=== PATIENT | male | born 1960 | race African-American/Black ===

== ENCOUNTER → 2016-05-22 | Outpatient (CLI) | payer OTHER ==
--- NOTE | 2016-05-22 08:16 | EKG REPORT ---
SEVERITY:- NORMAL ECG - SINUS RHYTHM : Confirmed by: Tom Boyle 22-May-2016 08:15:47
[2016-05-22 08:18] LABS: ABSOLUTE EOSINOPHILS # (AUTO) 0.1 10^3/uL (0.0-0.6); ABSOLUTE LYMPHOCYTES (AUTO) 1.1 10^3/uL (0.5-4.7); ABSOLUTE MONOCYTES (AUTO) 0.5 10^3/uL (0.1-1.4); ABSOLUTE NEUT (AUTO) 1.9 10^3/uL (1.7-8.2); BASOPHILS % (AUTO) 0.7 % (0-2); EOSINOPHILS % (AUTO) 2.7 % (0-6); HEMATOCRIT 40.3 % (37.9-51.0); HEMOGLOBIN 13.8 g/dL (13.5-17.0); HGB HCT DIFFERENCE 1.1; LYMPHOCYTES % (AUTO) 31.4 % (13-45); MEAN CORPUSCULAR HEMOGLOBIN 29.7 pg (27.0-33.4); MEAN CORPUSCULAR HGB CONC 34.3 g/dL (32.0-36.0); MEAN CORPUSCULAR VOLUME 87 fl (80-97); MONOCYTES % (AUTO) 13.1 % (3-13); RED BLOOD COUNT 4.66 10^6/uL (4.35-5.55); RED CELL DISTRIBUTION WIDTH 13.7 % (11.5-14.0); SEGMENTED NEUTROPHILS % (AUTO) 52.1 % (42-78); WHITE BLOOD COUNT 3.6 10^3/uL (4.0-10.5)
[2016-05-22 08:37] LABS: ALANINE AMINOTRANSFERASE 32 U/L (21-72); ALBUMIN 4.1 g/dL (3.5-5.0); ALKALINE PHOSPHATASE 64 U/L (38-126); ANION GAP 15 (5-19); ASPARTATE AMINO TRANSFERASE 26 U/L (17-59); BILIRUBIN,DIRECT 0.2 mg/dL (0.0-0.4); BILIRUBIN,TOTAL 0.5 mg/dL (0.2-1.3); BLOOD UREA NITROGEN 14 mg/dL (7-20); CALCIUM 9.9 mg/dL (8.4-10.2); CARBON DIOXIDE 28 mmol/L (22-30); CHLORIDE 103 mmol/L (98-107); CREATININE RESULT 1.11 mg/dL (0.52-1.25); Direct HDL 41 mg/dL (>40); GLUCOSE 106 mg/dL (75-110); POTASSIUM 4.8 mmol/L (3.6-5.0); SODIUM 145.5 mmol/L (137-145); TOTAL PROTEIN 7.3 g/dL (6.3-8.2); TRIGLYCERIDES 167 mg/dL (<150)
[2016-05-22 09:13] LABS: DIRECT LDL 123 mg/dL (<100)
[2016-05-22 09:38] LABS: VLDL CHOLESTEROL 33.4 mg/dL (10-31)
== END ==
LOC: CCC 07:16
DX: I10 Essential (primary) hypertension (principal); E66.9 Obesity, unspecified; K21.9 Gastro-esophageal reflux disease without esophagitis; M25.512 Pain in left shoulder
CPT/HCPCS: 36415; 80053; 80061; 83036; 84153; 84443; 85025; 93005; 93010

== ENCOUNTER 2016-07-07 02:39 | Emergency (ER) | payer SELFPAY ==
[2016-07-07] MEDS ORDERED: IPRATROPIUM/ALBUTEROL 0.5-2.5 MG/3 ML AMPUL NEB ONE ×2 (03:24→04:53)
[2016-07-07] MEDS ORDERED: PREDNISONE 20 MG TABLET PO ONE (03:25)
--- NOTE | 2016-07-07 04:05 | ER Document Report ---
ED General - General Chief Complaint: Nonproductive Cough Stated Complaint: CHEST PAIN,WHEEZING Time Seen by Provider: 07/07/16 03:20 Notes: Patient is a 55-year-old male who presents with complaints of wheezing, cough, congestion for 3 days. He says he has pain in his chest every time he coughs. No fevers. No vomiting. No diarrhea. He is a smoker. No other complaints at this time. TRAVEL OUTSIDE OF THE [place] IN LAST 30 DAYS: No - Related Data Allergies/Adverse Reactions: chlorpheniramine [From Theraflu Cold & Sore Throat] Allergy (Unknown, Verified 07/07/16 04:04) pseudoephedrine HCl [From Theraflu Cold & Sore Throat] Allergy (Unknown, Verified 07/07/16 04:04) ketorolac tromethamine [From Toradol] Allergy (Verified 07/07/16 04:04) Hives Shellfish * [Shellfish] Allergy (Verified 07/07/16 04:04) swelling tramadol [Tramadol] Allergy (Verified 07/07/16 04:04) Hives tramadol HCl [From Ultram] Allergy (Verified 07/07/16 04:04) Hives Past Medical History - Social History Smoking Status: Current Every Day Smoker Chew tobacco use (# tins/day): No Frequency of alcohol use: None Drug Abuse: None Family History: CAD - Past Medical History Cardiac Medical History: Reports: Hx Hypercholesterolemia, Hx Hypertension Denies: Hx Heart Attack Pulmonary Medical History: Denies: Hx Asthma, Hx Bronchitis, Hx COPD, Hx Pneumonia, Hx Tuberculosis Neurological Medical History: Denies: Hx Cerebrovascular Accident, Hx Seizures Endocrine Medical History: Reports: Hx Diabetes Mellitus Type 2 - pre-diabetic Renal/ Medical History: Denies: Hx Peritoneal Dialysis GI Medical History: Reports: Hx Gastroesophageal Reflux Disease, Hx Hiatal Hernia, Hx Ulcer Musculoskeltal Medical History: Reports Hx Arthritis Psychiatric Medical History: Reports: Hx Bipolar Disorder, Hx Depression Past Surgical History: Reports: Hx Inguinal Hernia - [facility] REPAIR. Denies: Hx Pacemaker - Immunizations Immunizations up to date: Yes Hx Diphtheria, Pertussis, Tetanus Vaccination: Yes Hx Pneumococcal Vaccination: 02/24/00 Review of Systems - Review of Systems Notes: My Normal Review Basic REVIEW OF SYSTEMS: CONSTITUTIONAL : Denies fever, chills, or sweats. Denies recent illness. EENT: Denies eye, ear, throat, or mouth pain or symptoms. Denies nasal or sinus congestion. CARDIOVASCULAR: Chest pain with cough. RESPIRATORY: Diffuse wheezing GASTROINTESTINAL: Denies abdominal pain. Denies nausea, vomiting, or diarrhea. Denies constipation. Last BM: MUSCULOSKELETAL: Denies neck or back pain or joint pain or swelling. SKIN: Denies rash or skin lesions. NEUROLOGICAL: Denies altered mental status or loss of consciousness. ALL OTHER SYSTEMS REVIEWED AND NEGATIVE. Physical Exam - Vital signs Vitals: Temp Pulse BP Pulse Ox 98.4 F 95 128/91 H 96 07/07/16 02:43 07/07/16 02:43 07/07/16 02:43 07/07/16 02:43 - Notes Notes: General Appearance: Well nourished, alert, cooperative, no acute distress, mild obvious discomfort. Vitals: reviewed, See vital signs table. Head: no swelling or tenderness to the head Eyes: PERRL, EOMI, Conjuctiva clear Mouth: No decreasd moisture Lungs: scattered wheezing, No rales, No rhonci, No accessory muscle use, good air exchange bilaterally. Heart: Normal rate, Regular rythm, No murmur, no rub Abdomen: Normal BS, soft, No rigidity, No abdominal tenderness, No guarding, no rebound, no abdominal masses, no organomegaly Extremities: strength 5/5 in all extremities, good pulses in all extremities, no swelling or tenderness in the extremities, no edema. Skin: warm, dry, appropriate color, no rash Neuro: speech clear, oriented x 3, normal affect, responds appropriately to questions. Course - Re-evaluation Re-evalutation: 07/07/16 05:26 Patient is having some and improvement now after last breathing treatments. He has very slight wheezing left. Still some cough. I'll give him 1 dose magnesium. I suspect he'll be able to be discharged after that. - Vital Signs Vital signs: Temp Pulse Resp BP Pulse Ox 98.4 F 95 128/91 H 96 07/07/16 02:43 07/07/16 02:43 07/07/16 02:43 07/07/16 02:43 - EKG Interpretation by Me Additional EKG results interpreted by me: 07/07/16 04:04 EKG is reviewed and interpreted by me. EKG shows normal sinus rhythm with rate of [address] segment elevation or depression. No ischemic T wave inversions. KS interval, QRS duration, QTC also are within normal range. Old EKG for comparison is from 05/22/2016. - Transfer of Care Notes: 07/07/16 06:15 Patient's lung barton are much more clear. He looks well. Appears a has bronchitis. It's wheezing cough and congestion associated with smoking. I will place him on prednisone. I'll place him on an albuterol inhaler. We'll give him azithromycin. I encouraged him to return to ER if he has worsening difficulty breathing, fevers, or feels unwell. I think his chest pain is related to coughing. Pain occurs when he coughs. I do not think is cardiac in nature. His EKG is negative. Dictation of this chart was performed using voice recognition software; therefore, there may be some unintended grammatical errors. Discharge - Discharge Clinical Impression: Bronchitis Condition: Good Disposition: HOME, SELF-CARE Additional Instructions: BRONCHITIS WITH BRONCHOSPASM (WHEEZING): You have bronchitis with bronchospasm (wheezing). Sometimes people develop wheezing with a chest cold. This occurs either because of an underlying tendency toward asthma or because the virus itself irritates the bronchial tubes. This irritation causes cough, shortness of breath, and wheezing. Emergency treatment of bronchospasm may include adrenaline shots or bronchodilator aerosol. You may feel lightheaded and have a rapid pulse for an hour or two. Rest and get plenty of fluids. At home, we'll treat you with a bronchodilator inhaler. Corticosteroids may be required for some patients. Until you recover, avoid chemical fumes, dusts, pollens, and exercising in very cold or dry air. If you smoke, stop now! Most cases of bronchitis get better without antibiotics. We prescribe antibiotics when we believe bacteria are damaging your airways, or if there's high risk the bronchitis will worsen into pneumonia. Increase your fluid intake. A cool mist humidifier may make your lungs more comfortable. An expectorant (cough medicine that loosens phlegm) can help. Repeated episodes of bronchitis and bronchospasm may result in lung damage -- for example, chronic bronchitis, recurrent pneumonias, or emphysema. If you develop a fever, increased wheezing, chest pain, or severe shortness of breath, you should contact the doctor immediately. INHALED BRONCHODILATORS: You have received a treatment of and/or prescription for an inhaled bronchodilator -- a medication which stimulates the airways in the lung to dilate. This improves the flow of air in asthma, bronchitis, and emphysema. These medicines have some similarity to adrenaline, and can cause similar side effects: shakiness, racing heart, and a sense of nervousness. These side effects decrease with time. Contact your doctor if these side effects are severe. Do not over-use the medicine. Too-frequent use of the inhaler may make it ineffective. Call your doctor if the inhaler is not controlling your symptoms at the prescribed doses. STEROID MEDICATION: You have been given an injection of or oral medicine of the cortisone/ steroid class. This medication is used to control inflammation or allergy. Robin t is usually only given for a short period of time, until the acute process subsides. There are usually no side effects from short-term use of cortisone-like medications. Some persons feel an increased sense of well-being and are not sleepy at bedtime. Long-term use of cortisone medications is best avoided, unless required for a severe condition. If your condition does not remit, or relapses after the course of corticosteroid medication, you should consult your physician. ANTIBIOTIC THERAPY: You have been given an antibiotic prescription. It's important that you take all the medication, unless instructed otherwise by your physician. Failure to complete the entire course can result in relapse of your condition. Common side effects of antibiotics include nausea, intestinal cramping, or diarrhea. Women may develop vaginal yeast infections, and babies can get yeast (thrush) in the mouth following the use of antibiotics. Contact your physician if you develop significant side effects from this medication. Allergy to this antibiotic can result in hives, wheezing, faintness, or itching. If symptoms of allergy occur, stop the medication and call your doctor. AZITHROMYCIN: Azithromycin (Zithromax) is a broad spectrum antibiotic in the same class as erythromycin. It can treat a variety of bacterial infections, but is most frequently used for respiratory infections. Azithromycin is extremely long-lasting. It accumulates in body tissues and continues to kill bacteria for many days. In order to improve absorption, Azithromycin should be taken at least one hour before or two hours after a meal. It does not have the same strong tendency to upset the stomach as erythromycin and is usually very well tolerated. Patients who have had a rash or other true allergic reactions to erythromycin should not take this medication. Call if you develop gastrointestinal distress, severe diarrhea, rash, hives, itching, or shortness of breath. SMOKING: If you smoke, you should stop smoking. The tar and chemicals in cigarette smoke are harmful. Smoking has been shown to cause: emphysema chronic bronchitis lung cancer mouth and throat cancer stomach and pancreas cancer premature aging defects In addition, smoking increases ear and lung infections in children of smokers. FOLLOW-UP CARE: If you have been referred to a physician for follow-up care, call the physician s office for an appointment as you were instructed or within the next two days. If you experience worsening or a significant change in your symptoms, notify the physician immediately or return to the Emergency Department at any time for re-evaluation. Use the inhaler 2 puffs every 2 hours as needed for wheezing or coughing. Please return to the ER immediately if you develop worsening difficulty breathing, fevers, or feel unwell. Prescriptions: Azithromycin 250 mg PO DAILY #4 tablet Prednisone [Deltasone 20 mg Tablet] 3 tab PO DAILY 4 Days Forms: Return to School
[2016-07-07] MEDS ORDERED: MAGNESIUM SULFATE/D5W 100 ML IV ONE (05:24)
[2016-07-07] MEDS ORDERED: AZITHROMYCIN 250 MG TABLET PO ONE (05:26)
[2016-07-07] MEDS ORDERED: ALBUTEROL SULFATE HFA (90 MCG/PUFF) 8 GM MDI (1 MDI/ER DISP) IH PRN (06:10)
[2016-07-07 06:28] VITALS: BP 129/83
--- NOTE | 2016-07-07 08:37 | EKG REPORT ---
SEVERITY:- NORMAL ECG - SINUS RHYTHM : Confirmed by: Tom Boyle 07-Jul-2016 08:36:08
== END 2016-07-07 06:29 | disposition home or self-care (01) ==
LOC: ER 02:39
DX: J40 Bronchitis, not specified as acute or chronic (principal); F17.200 Nicotine dependence, unspecified, uncomplicated; E78.00 Pure hypercholesterolemia, unspecified; R73.03 Prediabetes; I10 Essential (primary) hypertension; Z88.6 Allergy status to analgesic agent
CPT/HCPCS: 93005; 94640 ×2; 99284; 96365; 71010; 93010; J3475; J7512; J3490; J7620

== ENCOUNTER 2016-08-21 10:16 | Emergency (ER) | payer SELFPAY ==
[2016-08-21] MEDS ORDERED: LIDOCAINE 5% (700 MG) TRANSDERMAL ADH..PATCH TP ONE (10:30)
--- NOTE | 2016-08-21 10:48 | ER Document Report ---
ED General - General Chief Complaint: Abdominal Pain Stated Complaint: URINARY PROBLEM Time Seen by Provider: 08/21/16 10:26 TRAVEL OUTSIDE OF THE [place] IN LAST 30 DAYS: No - HPI Patient complains to provider of: Flank pain Notes: Patient coming in for evaluation of flank pain and foul-smelling urine ongoing intermittently for the last 2 months. Patient states she does drink water 5 more or less does not drink enough water for his conditions. Denies any past medical history denies any surgical history. Denies any history of trauma denies any difficulty in urinating - Related Data Allergies/Adverse Reactions: chlorpheniramine [From Theraflu Cold & Sore Throat] Allergy (Unknown, Verified 08/21/16 10:21) pseudoephedrine HCl [From Theraflu Cold & Sore Throat] Allergy (Unknown, Verified 08/21/16 10:21) ketorolac tromethamine [From Toradol] Allergy (Verified 08/21/16 10:21) Hives Shellfish * [Shellfish] Allergy (Verified 08/21/16 10:21) swelling tramadol [Tramadol] Allergy (Verified 08/21/16 10:21) Hives tramadol HCl [From Ultram] Allergy (Verified 08/21/16 10:21) Hives Past Medical History - Social History Smoking Status: Unknown if Ever Smoked Family History: CAD Patient has suicidal ideation: No Patient has homicidal ideation: No - Past Medical History Cardiac Medical History: Reports: Hx Hypercholesterolemia, Hx Hypertension Denies: Hx Heart Attack Pulmonary Medical History: Denies: Hx Asthma, Hx Bronchitis, Hx COPD, Hx Pneumonia, Hx Tuberculosis Neurological Medical History: Denies: Hx Cerebrovascular Accident, Hx Seizures Endocrine Medical History: Reports: Hx Diabetes Mellitus Type 2 - pre-diabetic Renal/ Medical History: Denies: Hx Peritoneal Dialysis GI Medical History: Reports: Hx Gastroesophageal Reflux Disease, Hx Hiatal Hernia, Hx Ulcer Musculoskeltal Medical History: Reports Hx Arthritis Psychiatric Medical History: Reports: Hx Bipolar Disorder, Hx Depression Past Surgical History: Reports: Hx Inguinal Hernia - [facility] REPAIR. Denies: Hx Pacemaker - Immunizations Immunizations up to date: Yes Hx Diphtheria, Pertussis, Tetanus Vaccination: Yes Hx Pneumococcal Vaccination: 02/24/00 Review of Systems - Review of Systems Constitutional: No symptoms reported EENT: No symptoms reported Cardiovascular: No symptoms reported Respiratory: No symptoms reported Gastrointestinal: No symptoms reported Genitourinary: Flank pain Male Genitourinary: No symptoms reported Musculoskeletal: No symptoms reported Skin: No symptoms reported Hematologic/Lymphatic: No symptoms reported Neurological/Psychological: No symptoms reported -: Yes All other systems reviewed and negative Physical Exam - Vital signs Vitals: Temp Pulse Resp BP Pulse Ox 98.0 F 103 H 16 115/76 96 08/21/16 10:21 08/21/16 10:21 08/21/16 10:21 08/21/16 10:21 08/21/16 10:21 Interpretation: Normal - General General appearance: Appears well, Alert - HEENT Head: Normocephalic, Atraumatic Eyes: Normal Pupils: PERRL - Respiratory Respiratory status: No respiratory distress Chest status: Nontender Breath sounds: Normal Chest palpation: Normal - Cardiovascular Rhythm: Regular Heart sounds: Normal auscultation Murmur: No - Abdominal Inspection: Normal Distension: No distension Bowel sounds: Normal Tenderness: Nontender Organomegaly: No organomegaly - Back Back: Normal, Tender - Palpation of the paraspinal muscles that L1-L2-L3 on the right side reproduces patient's tenderness - Extremities General upper extremity: Normal inspection, Nontender, Normal color, Normal ROM , Normal temperature General lower extremity: Normal inspection, Nontender, Normal color, Normal ROM , Normal temperature, Normal weight bearing. No: Vinod's sign - Neurological Neuro grossly intact: Yes Cognition: Normal Orientation: AAOx4 [place] Coma Scale Eye Opening: Spontaneous [place] Coma Scale Verbal: Oriented Tod Coma Scale Motor: Obeys Commands Tod Coma Scale Total: 15 Speech: Normal Motor strength normal: LUE, RUE, LLE, RLE Sensory: Normal - Psychological Associated symptoms: Normal affect, Normal mood - Skin Skin Temperature: Warm Skin Moisture: Dry Skin Color: Normal Course - Re-evaluation Re-evalutation: 08/21/16 18:40 Urinalysis shows signs of possible infection. Patient will be started on doxycycline. Patient lab work was reviewed with the patient encouraged patient follow-up primary care physician on [facility]. Patient will be discharged home. - Vital Signs Vital signs: Temp Pulse Resp BP Pulse Ox 98.2 F 92 18 121/79 95 08/21/16 12:08 08/21/16 12:08 08/21/16 12:08 08/21/16 12:08 08/21/16 12:08 - Laboratory Result Diagrams: 08/21/16 10:57 08/21/16 10:57 Laboratory results interpreted by me: 08/21/16 08/21/16 08/21/16 10:49 10:57 10:57 WBC 3.7 L Glucose 112 H Ur Leukocyte Esterase SMALL H Discharge - Discharge Clinical Impression: Flank pain UTI (urinary tract infection) Qualifiers: Urinary tract infection type: site unspecified Hematuria presence: without hematuria Qualified Code(s): N39.0 - Urinary tract infection, site not specified Condition: Good Disposition: HOME, SELF-CARE Instructions: Urinary Tract Infection ([facility]), Flank Pain ([facility]), Oral Narcotic Medication ([facility]), Family Physicians / Practices Additional Instructions: Your laboratory studies today do not show any signs of significant infection however her urine does point toward signs of a possible urinary tract infection. Your pain may be due to urinary tract infection or inflammation of your prostate. Your CAT scan does not reveal any critical pathology but does show a right inguinal hernia. At this time we will see that we treat you with an antibiotic for possible urinary tract infection for the next 10 days. He will be placed on antibiotic of doxycycline. If you cannot afford this antibiotic please have the pharmacy call us to change the name of this antibiotic. May also take pain medication provided. I will highly recommend taking Tylenol Motrin for regular pain. If this does not resolve your pain highly recommend following up with her family physician or the [facility] which information was given below for follow-up evaluation Prescriptions: Doxycycline Hyclate 100 mg PO BID #20 capsule Hydrocodone Bit/Acetaminophen [Hydrocodon-Acetaminophen 5-325] 1 each PO Q6 #20 tablet Forms: Return to Work
[2016-08-21 11:24] LABS: APPEARANCE,URINE CLEAR; BILIRUBIN,URINE NEGATIVE (NEGATIVE); GLUCOSE, URINE NEGATIVE (NEGATIVE); KETONES,URINE NEGATIVE (NEGATIVE); LEUKOCYTE ESTERASE,URINE SMALL (NEGATIVE); NITRITE,URINE NEGATIVE (NEGATIVE); PROTEIN,URINE NEGATIVE (NEGATIVE); URINE SPECIFIC GRAVITY 1.014; UROBILINOGEN,URINE NEGATIVE mg/dL (<2.0)
[2016-08-21 11:27] LABS: ABSOLUTE EOSINOPHILS # (AUTO) 0.1 10^3/uL (0.0-0.6); ABSOLUTE LYMPHOCYTES (AUTO) 1.2 10^3/uL (0.5-4.7); ABSOLUTE MONOCYTES (AUTO) 0.4 10^3/uL (0.1-1.4); BASOPHILS % (AUTO) 0.8 % (0-2); EOSINOPHILS % (AUTO) 1.6 % (0-6); HEMATOCRIT 41.7 % (37.9-51.0); HEMOGLOBIN 13.9 g/dL (13.5-17.0); LYMPHOCYTES % (AUTO) 32.2 % (13-45); MEAN CORPUSCULAR HEMOGLOBIN 29.9 pg (27.0-33.4); MEAN CORPUSCULAR HGB CONC 33.4 g/dL (32.0-36.0); MEAN CORPUSCULAR VOLUME 90 fl (80-97); MONOCYTES % (AUTO) 10.8 % (3-13); RED BLOOD COUNT 4.65 10^6/uL (4.35-5.55); RED CELL DISTRIBUTION WIDTH 13.1 % (11.5-14.0); SEGMENTED NEUTROPHILS % (AUTO) 54.6 % (42-78); WHITE BLOOD COUNT 3.7 10^3/uL (4.0-10.5)
[2016-08-21 11:41] LABS: ANION GAP 13 (5-19); BLOOD UREA NITROGEN 18 mg/dL (7-20); CALCIUM 9.5 mg/dL (8.4-10.2); CARBON DIOXIDE 24 mmol/L (22-30); CHLORIDE 103 mmol/L (98-107); CREATININE RESULT 1.16 mg/dL (0.52-1.25); GLUCOSE 112 mg/dL (75-110); POTASSIUM 4.5 mmol/L (3.6-5.0)
--- NOTE | 2016-08-21 11:48 | RADIOLOGY REPORT (SQ) ---
EXAM DESCRIPTION: CT LTD RENAL STONE PROTOCOL ON COMPLETED DATE/TIME: 08/21/2016 11:32 am REASON FOR STUDY: right flank pain COMPARISON: [address] abdomen pelvis exams since 06/24/2008, most recently 05/31/2015 TECHNIQUE: CT scan of the abdomen and pelvis performed without intravenous or oral contrast. Images reviewed with lung, soft tissue, and bone windows. Reconstructed coronal and sagittal MPR images revi ewed. All images stored on PACS. All CT scanners at this facility use dose modulation, iterative reconstruction, and/or weight based d osing when appropriate to reduce radiation dose to as low as reasonably achievable (ALARA). [facility]: Dose Right [facility]: CareDose [facility]: Dose Right [facility]: Teradose 4D [facility]: Prospectvision RADIATION DOSE: 18.51mGy. LIMITATIONS: None. FINDINGS: LOWER CHEST: No significant findings. No nodules or infiltrates. Small hiatal hernia. Mi nimal bandlike scarring or atelectasis, right lung base. NON-CONTRASTED LIVER, SPLEEN, ADRENALS: Evaluation limited by lack of IV contrast. No identified sign ificant masses. Benign hemangioma along the middle hepatic vein seen on prior CT exams of contrast i s not well visualized today. PANCREAS: No masses. No peripancreatic inflammatory changes. GALLBLADDER: No identified stones by CT criteria. No inflammatory changes to suggest cholecystitis. RIGHT KIDNEY AND URETER: No suspicious masses. Assessment limited by lack of IV contrast. No signif icant calcifications. No hydronephrosis or hydroureter. LEFT KIDNEY AND URETER: No suspicious masses. Assessment limited by lack of IV contrast. No signifi cant calcifications. No hydronephrosis or hydroureter. AORTA AND RETROPERITONEUM: No aneurysm. No retroperitoneal masses or adenopathy. BOWEL AND PERITONEAL CAVITY: No obvious masses or inflammatory changes. No free fluid. APPENDIX: Normal. PELVIS, BLADDER, AND ABDOMINAL WALL:No abnormal masses. No free fluid. Bladder normal. There is a sm all fat containing right inguinal hernia on axial images 78-97, and coronal images 40-46. BONES: No significant findings. OTHER: No other significant finding. IMPRESSION: No CT findings to explain history of right flank pain. There is a small fat containing right inguinal hernia TECHNICAL DOCUMENTATION: JOB ID: [id number] Quality ID # [id number]: Final reports with documentation of one or more dose reduction techniques (e.g., Au tomated exposure control, adjustment of the mA and/or kV according to patient size, use of iterative reconstruction technique) 2010 [email or web address]- All Rights Reserved
[2016-08-21 12:09] VITALS: BP 121/79
== END 2016-08-21 12:22 | disposition home or self-care (01) ==
LOC: ER 10:16
DX: N39.0 Urinary tract infection, site not specified (principal); R10.9 Unspecified abdominal pain; I10 Essential (primary) hypertension; Z88.8 Allergy status to other drugs, medicaments and biological substances; Z91.013 Allergy to seafood; Z88.5 Allergy status to narcotic agent
CPT/HCPCS: 36415; 76380; 80048; 81001; 85025; 99284

== ENCOUNTER → 2016-10-10 | Outpatient (CLI) | payer OTHER ==
--- NOTE | 2016-10-10 09:37 | RADIOLOGY REPORT (SQ) ---
EXAM DESCRIPTION: MRI LT UPPER JOINT WITHOUT COMPLETED DATE/TIME: 10/10/2016 8:28 am REASON FOR STUDY: PAIN IN UNSPECIFIED SHOULDER (M25.519) M25.519 PAIN IN UNSPECIFIED SHOULDER COMPARISON: None. TECHNIQUE: Left shoulder images acquired and stored on PACS. Multiplanar imaging to include fat sens itive sequences such as T1, water sensitive sequences such as FST2/STIR, cartilage sensitive sequence s such as FSPD/gradient-echo sequences. LIMITATIONS: None. FINDINGS: BONE MARROW AND CORTEX: No worrisome bone lesions or marrow replacement. No occult fractur es. JOINT OR BURSAL EFFUSION: No glenohumeral joint fluid. There is a small amount of fluid in the subac romial/subdeltoid bursa best shown on sagittal images 10-13. GLENO-HUMERAL ARTICULATION: Normal articulation. No subluxation. No cystic change. No osteophytes or cartilage loss. ACROMION AND AC JOINT: Type 2 with moderate bulky bony spurring, and mild narrowing of the subacromi al space on sagittal image 14 and coronal image 10. ROTATOR CUFF AND INTERVAL: A small full-thickness tear is present in the anterior aspect of the dista l supraspinatus tendon, best shown on coronal image 8 and sagittal image 5. There is diffuse tendino pascual throughout the infraspinatus tendon, with a small posterior infraspinatus tendon full-thickness tear on sagittal images 3-6. Subscapularis intact. No rotator interval tear. No rotator interval thickening to suggest adhesive capsulitis. LABRUM AND BICEPS LABRAL COMPLEX: Intra and extra-articular long head biceps tendon intact. Howeve r, there is diffuse degeneration throughout the anterior and superior labrum without paralabral cyst. These changes are best shown on axial images 8-13. Posterior labrum, inferior labrum intact. Smal l axillary recess, with thickening of the inferior glenohumeral ligament raises a question of adhesiv e capsulitis PERIARTICULAR AND ADJACENT SOFT TISSUES: No masses or abnormal nodes. OTHER: No other significant finding. IMPRESSION: Acromioclavicular joint bony spurring. Diffuse degeneration throughout the anterior half of the labrum Small supra and infraspinatus tendon tears TECHNICAL DOCUMENTATION: JOB ID: [id number] [employer]- All Rights Reserved
== END ==
LOC: RAD 07:23
DX: M25.512 Pain in left shoulder (principal)

== ENCOUNTER 2016-11-06 15:26 | Emergency (ER) | payer OTHER ==
[2016-11-06 15:33] VITALS: BP 132/85
[2016-11-06] MEDS ORDERED: HYDROCODONE/ACETAMINOPHEN 5-325 MG 6 TAB/DSPK PO PRN (16:05)
--- NOTE | 2016-11-06 16:12 | ER Document Report ---
ED Extremity Problem, Upper - General Chief Complaint: Shoulder Pain Stated Complaint: ARM PAIN Time Seen by Provider: 11/06/16 15:51 Mode of Arrival: Ambulatory Information source: Patient Notes: 55-year-old male presents to ED complaining of left shoulder and arm pain. This is a chronic pain problem. He states he has been having shoulder and arm pain for at least a year. He was seen at recently and had a MRI done which showed that he had a torn rotator cuff, bone spurring and arthritis in the shoulder. Patient states he has a follow-up appointment with Dr. Aguiar in [place] but he is hurting now. He states he was not started on any physical therapy or provided with a sling. TRAVEL OUTSIDE OF THE [place] IN LAST 30 DAYS: No - HPI Patient complains to provider of: Left, Shoulder Onset: Other - over a year Recent injury: No Quality of pain: Achy, Sharp, Throbbing Severity of pain: Severe Pain Level: 5 Exacerbated by: Movement, Exertion Relieved by: Rest, Positioning Similar symptoms previously: Yes Recently seen / treated by doctor: Yes - Related Data Allergies/Adverse Reactions: chlorpheniramine [From Theraflu Cold & Sore Throat] Allergy (Unknown, Verified 11/06/16 15:32) pseudoephedrine HCl [From Theraflu Cold & Sore Throat] Allergy (Unknown, Verified 11/06/16 15:32) ketorolac tromethamine [From Toradol] Allergy (Verified 11/06/16 15:32) Hives Shellfish * [Shellfish] Allergy (Verified 11/06/16 15:32) swelling tramadol [Tramadol] Allergy (Verified 11/06/16 15:32) Hives tramadol HCl [From Ultram] Allergy (Verified 11/06/16 15:32) Hives Past Medical History - General Information source: Patient - Social History Smoking Status: Current Every Day Smoker Cigarette use (# per day): Yes - One half pack per day Chew tobacco use (# tins/day): No Smoking Education Provided: Yes - Less than 2 minutes Frequency of alcohol use: None Drug Abuse: None Lives with: Family Family History: Arthritis, CAD, CVA, Hyperlipidemia, Hypertension Patient has suicidal ideation: No Patient has homicidal ideation: No - Past Medical History Cardiac Medical History: Reports: Hx Hypercholesterolemia, Hx Hypertension Pulmonary Medical History: Reports: Hx Bronchitis EENT Medical History: Reports: None Neurological Medical History: Reports: None Endocrine Medical History: Reports: Other - A diabetic Renal/ Medical History: Reports: None Malignancy Medical History: Reports None GI Medical History: Reports: Hx Gastroesophageal Reflux Disease, Hx Hiatal Hernia, Hx Ulcer, Hx Colonoscopy, Hx Endoscopy Musculoskeltal Medical History: Reports Hx Arthritis, Reports Hx Musculoskeletal Trauma - ACL tear Skin Medical History: Reports None Psychiatric Medical History: Reports: Hx Bipolar Disorder, Hx Depression Traumatic Medical History: Reports: None Infectious Medical History: Reports: None Past Surgical History: Reports: Hx Inguinal Hernia - [facility] REPAIR - Immunizations Immunizations up to date: Yes Hx Diphtheria, Pertussis, Tetanus Vaccination: Yes Hx Pneumococcal Vaccination: 02/24/00 Review of Systems - Review of Systems Constitutional: No symptoms reported EENT: No symptoms reported Cardiovascular: No symptoms reported Respiratory: No symptoms reported Gastrointestinal: No symptoms reported Genitourinary: No symptoms reported Male Genitourinary: No symptoms reported Musculoskeletal: Joint pain, Muscle pain, Muscle stiffness Skin: No symptoms reported Hematologic/Lymphatic: No symptoms reported Neurological/Psychological: No symptoms reported -: Yes All other systems reviewed and negative Physical Exam - Vital signs Vitals: Temp Pulse Resp BP Pulse Ox 98.3 F 106 H 14 132/85 H 97 11/06/16 15:30 11/06/16 15:30 11/06/16 15:30 11/06/16 15:30 11/06/16 15:30 Interpretation: Normal - General General appearance: Appears well, Alert - HEENT Head: Normocephalic, Atraumatic Eyes: Normal Pupils: PERRL - Respiratory Respiratory status: No respiratory distress Chest status: Nontender Breath sounds: Normal Chest palpation: Normal - Cardiovascular Rhythm: Regular Heart sounds: Normal auscultation Murmur: No - Abdominal Inspection: Normal Distension: No distension Bowel sounds: Normal Tenderness: Nontender Organomegaly: No organomegaly - Back Back: Normal, Nontender - Extremities General upper extremity: Normal color, Normal temperature General lower extremity: Normal inspection, Nontender, Normal color, Normal ROM , Normal temperature, Normal weight bearing. No: Vinod's sign Shoulder: Tender, Limited ROM. No: Abrasion, Deformity, Dislocation, Ecchymosis , Instability, Laceration Arm: Tender. No: Abrasion, Deformity, Ecchymosis, Instability, Laceration - Neurological Neuro grossly intact: Yes Cognition: Normal Orientation: AAOx4 [place] Coma Scale Eye Opening: Spontaneous Tod Coma Scale Verbal: Oriented Tod Coma Scale Motor: Obeys Commands Tod Coma Scale Total: 15 Speech: Normal Motor strength normal: LUE, RUE, LLE, RLE Sensory: Normal - Psychological Associated symptoms: Normal affect, Normal mood - Skin Skin Temperature: Warm Skin Moisture: Dry Skin Color: Normal Course - Re-evaluation Re-evalutation: 11/06/16 16:21 Patient was treated with a sling and Wayland dispense back for his chronic left shoulder pain. He was instructed that we do not provide narcotics for chronic pain and that he will not be getting more narcotics for his chronic pain he needs to follow-up with his orthopedics. He was also given instructions for shoulder exercises ice and warm packs. - Vital Signs Vital signs: Temp Pulse Resp BP Pulse Ox 98.3 F 106 H 14 132/85 H 97 11/06/16 15:30 11/06/16 15:30 11/06/16 15:30 11/06/16 15:30 11/06/16 15:30 Discharge - Discharge Clinical Impression: Chronic left shoulder pain Condition: Stable Disposition: HOME, SELF-CARE Instructions: Family Physicians / Practices, Exercise Program for the Shoulder ([facility]) Additional Instructions: You were seen today for chronic shoulder pain. You have been to the care in community clinic who did an MRI and showed you that you have a rotator cuff tear with arthritis and bone spurring and near shoulder. He stated you have a follow-up appointment with orthopedics for later this month. I will give you a sling to wear when you are walking. You are not to wear the sling at all times and you are not to wear the sling to bed. You need to be sure to keep moving her shoulder so that you do not get a frozen shoulder. I am going to give you a dispense pack of hydrocodone for your pain. This is a one-time of receiving this medication as we do not treat chronic pain with narcotics. USE OF TYLENOL (ACETAMINOPHEN): Acetaminophen may be taken for pain relief or fever control. It's much safer than aspirin, offering a wider range of "safe" dosages. It is safe during . Some brand names are Tylenol, Panadol, Datril, Anacin 3, Tempra, and Liquiprin. Acetaminophen can be repeated every four hours. The following are maximum recommended dosages: WEIGHT Dose Drops Elixir Chewable( 80mg) (LBS.) drprs=droppers tsp=teaspoon 6 40 mg 0.4 ml (1/2) 6-11 80 mg 0.8 ml (full) tsp 1 tab 12-16 120 mg 1 1/2 drprs 3/4 tsp 1 1/2 tabs 17-23 160 mg 2 drprs 1 tsp 2 tabs 24-30 240 mg 3 drprs 1 1/2 tsp 3 tabs 30-35 320 mg 2 tsp 4 tabs 36-41 360 mg 2 1/4 tsp 4 1/2 tabs 42-47 400 mg 2 1/2 tsp 5 tabs 48-53 480 mg 3 tsp 6 tabs 54-59 520 mg 3 1/4 tsp 6 1/2 tabs 60-64 560 mg 3 1/2 tsp 7 tabs 65-70 600 mg 3 3/4 tsp 7 1/2 tabs 71-76 640 mg 4 tsp 8 tabs 77-82 720 mg 4 1/2 tsp 9 tabs 83-88 800 mg 5 tsp 10 tabs >89 pounds or adults 650 mg to 900 mg Acetaminophen can be repeated every four hours. Maximum dose not to exceed 4000 mg a day. These maximum recommended dosages are slightly higher than the dosages written on the product container, but these dosages are very safe and below the toxic dosage for acetaminophen. ICE PACKS: Apply ice packs frequently against the painful area. Many different schedules are recommended, such as "20 minutes on, 20 minutes off" or "one hour ice, two hours rest." If you need to work, you may need to go longer between ice treatments. You should plan to have the area ice packed AT LEAST one fourth of the time. The ice should be applied over the wrap, tape, or splint, or over a layer of cloth -- not directly against the skin. Some ice bags have a built-in cloth and can be put directly on the skin. WARM PACKS: After approximately two days, apply gentle heat (such as a heating pad or hot water bottle) for about 20 to 30 minutes about every two hours -- at least four times daily. Warmth and elevation will help you make a more rapid recovery , and will ease the pain considerably. Do not use HOT heat, and never apply heat for longer than 30 minutes. The continuous heat can invisibly damage skin and muscles -- even when no burn is seen on the surface. Damaged muscles can make you MORE sore. ORAL NARCOTIC MEDICATION: You have been given a Wayland dispense back for pain control. This medication is a narcotic. It's best taken with food, as nausea can result if taken on an empty stomach. Don't operate machinery or drive within six hours of taking this medication. Do not combine this medicine with alcohol, or with any medication which can cause sedation (such as cold tablets or sleeping pills) unless you get permission from the physician. Narcotics tend to cause constipation. If possible, drink plenty of fluids and eat a diet high in fiber and fruits. USE OF TCAN-VWT-EUVRLFW IBUPROFEN: Ibuprofen (Advil, Nuprin, Medipren, Motrin IB) is a medication for fever and pain control. In addition, it has anti- inflammatory effects which may be beneficial, especially in the treatment of injuries. It's best to take ibuprofen with food. Persons with ulcer disease or allergy to aspirin should notify their physician of this before taking ibuprofen. Ibuprofen can be given every four to six hours, for a total of four doses daily. Age Pain or fever dose Antiinflammatory dose 6-8 yr 200 mg (1 tab) 200 mg (1 tab) 9-11 yr 200 mg (1 tab) 200-400 mg (1-2 tab) 11-14 yr 200-400 mg (1-2 tab) 400 mg (2 tab) 15-adult 400 mg (2 tab) 600 mg (3 tab) FOLLOW-UP CARE: If you have been referred to a physician for follow-up care, call the physician s office for an appointment as you were instructed or within the next two days. If you experience worsening or a significant change in your symptoms, notify the physician immediately or return to the Emergency Department at any time for re-evaluation. Forms: Elevated Blood Pressure, Smoking Cessation Education
== END 2016-11-06 16:28 | disposition home or self-care (01) ==
LOC: ER 15:26
DX: G89.29 Other chronic pain (principal); M25.512 Pain in left shoulder; F17.210 Nicotine dependence, cigarettes, uncomplicated; E78.00 Pure hypercholesterolemia, unspecified; I10 Essential (primary) hypertension; K21.9 Gastro-esophageal reflux disease without esophagitis; Z88.6 Allergy status to analgesic agent; Z91.013 Allergy to seafood
CPT/HCPCS: 99283

== ENCOUNTER → 2017-04-16 | Outpatient (CLI) | payer OTHER ==
[2017-04-16 12:32] LABS: CHOLESTEROL 143.66 mg/dL (0-200); TRIGLYCERIDES 111 mg/dL (<150)
[2017-04-16 12:42] LABS: DIRECT LDL 75 mg/dL (<100)
== END ==
LOC: CCC 11:33
DX: E78.5 Hyperlipidemia, unspecified (principal)
CPT/HCPCS: 36415; 80061

== ENCOUNTER 2017-06-07 18:08 | Emergency (ER) | payer OTHER ==
--- NOTE | 2017-06-07 19:43 | RADIOLOGY REPORT (SQ) ---
EXAM DESCRIPTION: CHEST 2 VIEWS COMPLETED DATE/TIME: 06/07/2017 7:36 pm REASON FOR STUDY: cough, chest pain COMPARISON: 06/25/2012 EXAM PARAMETERS: NUMBER OF VIEWS: two views TECHNIQUE: Digital Frontal and Lateral radiographic views of the chest acquired. RADIATION DOSE: NA LIMITATIONS: none FINDINGS: LUNGS AND PLEURA: No opacities, masses or pneumothorax. No pleural effusion. MEDIASTINUM AND HILAR STRUCTURES: No masses or contour abnormalities. HEART AND VASCULAR STRUCTURES: Heart normal size. No evidence for failure. BONES: No acute findings. HARDWARE: None in the chest. OTHER: No other significant finding. IMPRESSION: NO ACUTE RADIOGRAPHIC FINDING IN THE CHEST. TECHNICAL DOCUMENTATION: JOB ID: [id number] [employer]- All Rights Reserved Reading location - IP/workstation name: [email or web address]
--- NOTE | 2017-06-07 19:54 | ER Document Report ---
ED General - General Chief Complaint: Cough Stated Complaint: COUGH Time Seen by Provider: 06/07/17 19:25 TRAVEL OUTSIDE OF THE [place] IN LAST 30 DAYS: No - HPI Notes: 56-year-old smoker presents with cough. Patient initially had runny nose and congestion and has had more persistent cough over the last week and 1/2-2 weeks. He complains that he is wheezing but denies any history of asthma, previous wheezing or COPD. He is a smoker unquantified amount. Mild chest soreness with cough, nonradiating. Gradual in onset. No other modifying factors, no other associated symptoms, no other provocative or palliative factors. - Related Data Allergies/Adverse Reactions: chlorpheniramine [From Theraflu Cold & Sore Throat] Allergy (Unknown, Verified 12/29/16 18:29) pseudoephedrine HCl [From Theraflu Cold & Sore Throat] Allergy (Unknown, Verified 12/29/16 18:29) ketorolac tromethamine [From Toradol] Allergy (Verified 12/29/16 18:29) Hives Shellfish * [Shellfish] Allergy (Verified 12/29/16 18:29) swelling tramadol [Tramadol] Allergy (Verified 12/29/16 18:29) Hives tramadol HCl [From Ultram] Allergy (Verified 12/29/16 18:29) Hives Past Medical History - Social History Smoking Status: Current Every Day Smoker Drug Abuse: None Family History: Arthritis, CAD, CVA, Hyperlipidemia, Hypertension - Past Medical History Cardiac Medical History: Reports: Hx Hypercholesterolemia, Hx Hypertension Denies: Hx Heart Attack Pulmonary Medical History: Reports: Hx Bronchitis Denies: Hx Asthma, Hx COPD, Hx Pneumonia, Hx Tuberculosis Neurological Medical History: Denies: Hx Cerebrovascular Accident, Hx Seizures Endocrine Medical History: Reports: Hx Diabetes Mellitus Type 2 - pre-diabetic Renal/ Medical History: Denies: Hx Peritoneal Dialysis GI Medical History: Reports: Hx Gastroesophageal Reflux Disease, Hx Hiatal Hernia, Hx Ulcer, Hx Colonoscopy, Hx Endoscopy Musculoskeltal Medical History: Reports Hx Arthritis, Reports Hx Musculoskeletal Trauma - ACL tear Psychiatric Medical History: Reports: Hx Bipolar Disorder, Hx Depression Past Surgical History: Reports: Hx Inguinal Hernia - [facility] REPAIR. Denies: Hx Pacemaker - Immunizations Immunizations up to date: Yes Hx Diphtheria, Pertussis, Tetanus Vaccination: Yes Hx Pneumococcal Vaccination: 02/24/00 Review of Systems - Review of Systems Notes: Review of systems as in the history of present illness, otherwise negative. Physical Exam - Vital signs Vitals: Temp Pulse Resp BP Pulse Ox 98.2 F 80 20 124/72 96 06/07/17 18:14 06/07/17 18:14 06/07/17 18:14 06/07/17 18:14 06/07/17 18:14 - Notes Notes: General: Well developed . HEENT: Normocephalic, atraumatic. Pupils equal round reactive to light. No JVD. Chest: No trauma. Respiratory: Good air exchange, normal excursion. Cardiac: Regular rhythm. No murmurs or gallops. Abdomen: Soft, benign. Nondistended. Nontender. Back: No asymmetry or gross abnormality. Motor: Grossly normal power and tone. Neurologic: Alert, nonfocal. Cranial nerves II-12 are intact. Sensation intact. Vascular: Well perfused. Normal peripheral pulses. Skin: No petechiae or purpura. Course - Re-evaluation Re-evalutation: 06/07/17 20:24 56-year-old male with the after mentioned symptoms. Clear on auscultation when I evaluated him, suspect viral bronchitis and some persistent post bronchitic lung injury secondary to continued smoking. However, will obtain x-ray to rule out pneumonia. Plain films are obtained, no evidence of pneumonia, no indication for antibiotics. His request is given a prescription for metered-dose inhaler, although he has no active wheezing at this time. He is admonished to quit smoking, will follow up closely with his primary care physician. - Vital Signs Vital signs: Temp Pulse Resp BP Pulse Ox 98.0 F 81 16 125/71 98 06/07/17 20:05 06/07/17 20:05 06/07/17 20:05 06/07/17 20:05 06/07/17 20:05 Discharge - Discharge Clinical Impression: Bronchitis Condition: Good Disposition: HOME, SELF-CARE Instructions: Bronchitis ([facility]) Prescriptions: Albuterol Sulfate [Proair HFA Inhalation Aerosol 8.5 gm MDI] 2 puff IH Q4H PRN # 1 mdi PRN Reason: Referrals: NAPOLEON AGUILA MD [Primary Care Provider] - Follow up as needed
[2017-06-07 20:06] VITALS: BP 125/71
== END 2017-06-07 20:06 | disposition home or self-care (01) ==
LOC: ER 18:08
DX: J40 Bronchitis, not specified as acute or chronic (principal); R05 Cough; R09.89 Other specified symptoms and signs involving the circulatory and respiratory systems; R09.81 Nasal congestion; R07.9 Chest pain, unspecified; F17.200 Nicotine dependence, unspecified, uncomplicated; I10 Essential (primary) hypertension; R73.03 Prediabetes
CPT/HCPCS: 71046; 99283

== ENCOUNTER 2017-11-19 10:02 | Emergency (ER) | payer OTHER ==
[2017-11-19 10:09] VITALS: BP 139/93
[2017-11-19 11:02] LABS: APPEARANCE,URINE SLIGHTLY-CLOUDY; BILIRUBIN,URINE NEGATIVE (NEGATIVE); COLOR,URINE YELLOW; GLUCOSE, URINE NEGATIVE (NEGATIVE); KETONES,URINE NEGATIVE (NEGATIVE); LEUKOCYTE ESTERASE,URINE MODERATE (NEGATIVE); NITRITE,URINE NEGATIVE (NEGATIVE); PROTEIN,URINE NEGATIVE (NEGATIVE); URINE SPECIFIC GRAVITY 1.017; UROBILINOGEN,URINE NEGATIVE mg/dL (<2.0)
--- NOTE | 2017-11-19 11:29 | ER Document Report ---
ED General - General Chief Complaint: Penile Bleeding Stated Complaint: BLEEDING FROM PENIS Time Seen by Provider: 11/19/17 10:50 TRAVEL OUTSIDE OF THE [place] IN LAST 30 DAYS: No - HPI Notes: Patient is a 56-year-old male that presents to the emergency department for chief complaint of dysuria and hematuria. Patient has had hematuria for the last 3 weeks. 3 weeks ago he was seen at an outside facility and placed on doxycycline for urinary tract infection. He states his symptoms are unchanged over the last 3 weeks. He came in today because his symptoms are ongoing, he denies any new symptoms today. He denies any fevers or chills. He does endorse dysuria but denies frequency and abdominal pain. He denies any nausea, vomiting, and diarrhea. He does have a history of BPH and urinary tract infections in the past. He has had TURP procedure a while ago by urologist. Patient denies concern for STD. Past Medical History: BPH Past Surgical History: Rotator cuff repair, left inguinal hernia, TURP Social History: Daily tobacco but denies drugs and alcohol Family History: Reviewed and noncontributory for presenting illness Allergies: Reviewed, see documented allergy list. REVIEW OF SYSTEMS: CONSTITUTIONAL : No fever No chills No diaphoresis No recent illness EENT: No vision changes No congestion No sore throat CARDIOVASCULAR: No chest pain No palpitations RESPIRATORY: No shortness of breath No cough No difficulty breathing GASTROINTESTINAL: No abdominal pain No nausea No vomiting No diarrhea GENITOURINARY: dysuria hematuria No difficulty urinating MUSCULOSKELETAL: No back pain No leg pain No arm pain SKIN: No rashes No lesions LYMPHATIC: No swollen, enlarged glands. NEUROLOGICAL: No lightheadedness No headache No weakness No paresthesias PSYCHIATRIC: No anxiety No depression PHYSICAL EXAMINATION: Vital signs reviewed, nursing noted reviewed. GENERAL: Well-appearing, well-nourished and in no acute distress. HEAD: Atraumatic, normocephalic. EYES: Eyes appear normal, extraocular movements intact, sclera anicteric, conjunctiva are normal. ENT: nares patent, oropharynx clear without exudates. Moist mucous membranes. NECK: Normal range of motion, supple without lymphadenopathy LUNGS: Breath sounds clear to auscultation bilaterally and equal. No wheezes rales or rhonchi. HEART: Regular rate and rhythm without murmurs ABDOMEN: Soft, nontender, normoactive bowel sounds. No rebound, guarding, or rigidity. No masses appreciated. EXTREMITIES: Nontender, good range of motion, no pitting or edema. NEUROLOGICAL: No focal neurological deficits. Moves all extremities spontaneously Motor and sensory grossly intact on exam. PSYCH: Normal mood, normal affect. SKIN: Warm, Dry, normal turgor, no rashes or lesions noted on exposed skin - Related Data Allergies/Adverse Reactions: chlorpheniramine [From Theraflu Cold & Sore Throat] Allergy (Unknown, Verified 11/19/17 10:03) pseudoephedrine HCl [From Theraflu Cold & Sore Throat] Allergy (Unknown, Verified 11/19/17 10:03) ketorolac tromethamine [From Toradol] Allergy (Verified 11/19/17 10:03) Hives Shellfish * [Shellfish] Allergy (Verified 11/19/17 10:03) swelling tramadol [Tramadol] Allergy (Verified 11/19/17 10:03) Hives tramadol HCl [From Ultram] Allergy (Verified 11/19/17 10:03) Hives Past Medical History - Social History Smoking Status: Unknown if Ever Smoked Chew tobacco use (# tins/day): No Frequency of alcohol use: None Drug Abuse: None Family History: Arthritis, CAD, CVA, Hyperlipidemia, Hypertension Patient has suicidal ideation: No Patient has homicidal ideation: No - Past Medical History Cardiac Medical History: Reports: Hx Hypercholesterolemia, Hx Hypertension Denies: Hx Heart Attack Pulmonary Medical History: Reports: Hx Bronchitis Denies: Hx Asthma, Hx COPD, Hx Pneumonia, Hx Tuberculosis Neurological Medical History: Denies: Hx Cerebrovascular Accident, Hx Seizures Endocrine Medical History: Reports: Hx Diabetes Mellitus Type 2 - pre-diabetic Renal/ Medical History: Denies: Hx Peritoneal Dialysis GI Medical History: Reports: Hx Gastroesophageal Reflux Disease, Hx Hiatal Hernia, Hx Ulcer, Hx Colonoscopy, Hx Endoscopy Musculoskeletal Medical History: Reports Hx Arthritis, Reports Hx Musculoskeletal Trauma - ACL tear Psychiatric Medical History: Reports: Hx Bipolar Disorder, Hx Depression Past Surgical History: Reports: Hx Inguinal Hernia - [facility] REPAIR. Denies: Hx Pacemaker - Immunizations Immunizations up to date: Yes Hx Diphtheria, Pertussis, Tetanus Vaccination: Yes Hx Pneumococcal Vaccination: 02/24/00 Review of Systems - Review of Systems Notes: Dictated Physical Exam - Vital signs Vitals: Temp Pulse Resp BP Pulse Ox 97.8 F 85 18 139/93 H 98 11/19/17 10:08 11/19/17 10:08 11/19/17 10:08 11/19/17 10:08 11/19/17 10:08 - Notes Notes: Dictated Course - Re-evaluation Re-evalutation: 11/19/17 11:26 Vitals reviewed and stable. Patient afebrile and nontoxic. Nursing notes reviewed. Urinalysis shows urinary tract infection. I offered testing for gonorrhea and chlamydia but he declined stating he has no concerns for STD. He will be started on antibiotics for urinary tract infection. I did assistant counsel him on the possibility of bladder cancer because he is a smoker complaining of hematuria. He has a urologist that he will follow-up with if his hematuria continues. Discharged home in stable condition. - Vital Signs Vital signs: Temp Pulse Resp BP Pulse Ox 97.8 F 85 18 139/93 H 98 11/19/17 10:08 11/19/17 10:08 11/19/17 10:08 11/19/17 10:08 11/19/17 10:08 - Laboratory Laboratory results interpreted by me: 11/19/17 10:10 Urine Blood SMALL H Ur Leukocyte Esterase MODERATE H Discharge - Discharge Clinical Impression: Hematuria Qualifiers: Hematuria type: gross Qualified Code(s): R31.0 - Gross hematuria Urinary tract infection Qualifiers: Urinary tract infection type: acute cystitis Hematuria presence: with hematuria Qualified Code(s): N30.01 - Acute cystitis with hematuria Condition: Stable Disposition: ADMITTED INPATIENT Instructions: Urinary Tract Infection ([facility]), Trimethoprim-Sulfa ([facility]), Hematuria ([facility]) Additional Instructions: Please return to the emergency department if you have any worsening, or concern of your symptoms. Please return to the emergency department if you develop chest pain, difficulty breathing, severe abdominal pain, or ongoing vomiting. Please follow-up with your primary care physician in 2-3 days and any other recommended physicians. If prescribed, take all medications as directed. If you have any questions or concerns do not hesitate to return the emergency department for evaluation. Stop smoking. Smoking increases her risk of bladder cancer. Blood in your urine can be a sign of bladder cancer and you need to follow-up with urology for further evaluation if the bleeding persists Prescriptions: Sulfamethoxazole/Trimethoprim [Bactrim Ds Tablet] 1 each PO BID #14 tablet
== END 2017-11-19 12:03 | disposition home or self-care (01) ==
LOC: ER 10:02
DX: N30.01 Acute cystitis with hematuria (principal); I10 Essential (primary) hypertension; F17.200 Nicotine dependence, unspecified, uncomplicated; Z88.8 Allergy status to other drugs, medicaments and biological substances; Z88.5 Allergy status to narcotic agent; Z91.013 Allergy to seafood
CPT/HCPCS: 81001; 87086; 99284

== ENCOUNTER 2018-02-08 13:25 | Emergency (ER) | payer SELFPAY ==
[2018-02-08 13:31] VITALS: BP 128/85
[2018-02-08] MEDS ORDERED: ACETAMINOPHEN 325 MG TABLET PO ONE (15:56)
[2018-02-08] MEDS ORDERED: OXYMETAZOLINE HCL 0.05% NASAL SPRAY 15 ML BOTTLE NASL ONE (15:56)
[2018-02-08] MEDS ORDERED: PSEUDOEPHEDRINE HCL 30 MG TABLET PO ONE (15:58)
[2018-02-08] MEDS ORDERED: IBUPROFEN 600 MG TABLET PO ONE (15:58)
--- NOTE | 2018-02-08 16:00 | ER Document Report ---
ED General - General Chief Complaint: Flu Symptoms Stated Complaint: FLU SYMPTOMS Time Seen by Provider: 02/08/18 15:55 Mode of Arrival: Ambulatory Information source: Patient Notes: 57-year-old male with reflux, bipolar disorder presents with complaint of headache, nasal congestion, sore throat and productive cough that started 1 day prior to arrival. Patient denies fever, chills, chest pain, shortness of breath , abdominal pain, nausea, vomiting. TRAVEL OUTSIDE OF THE [place] IN LAST 30 DAYS: No - HPI Onset: Yesterday Onset/Duration: Sudden Quality of pain: Throbbing Severity: Mild Associated symptoms: Productive cough, Headache, Rhinnorhea, Sinus pain/drainage , Sore throat. denies: Chest pain, Chills, Earache, Fever, Nausea, Vomiting Exacerbated by: Denies Relieved by: Denies Similar symptoms previously: Yes Recently seen / treated by doctor: No - Related Data Allergies/Adverse Reactions: chlorpheniramine [From Theraflu Cold & Sore Throat] Allergy (Unknown, Verified 02/08/18 13:25) pseudoephedrine HCl [From Theraflu Cold & Sore Throat] Allergy (Unknown, Verified 02/08/18 13:25) ketorolac tromethamine [From Toradol] Allergy (Verified 02/08/18 13:25) Hives Shellfish * [Shellfish] Allergy (Verified 02/08/18 13:25) swelling tramadol [Tramadol] Allergy (Verified 02/08/18 13:25) Hives tramadol HCl [From Ultram] Allergy (Verified 02/08/18 13:25) Hives Past Medical History - General Information source: Patient - Social History Smoking Status: Current Every Day Smoker Cigarette use (# per day): Yes - 5 Chew tobacco use (# tins/day): No Smoking Education Provided: Yes - Smoking cessation counseling was provided for 4 minutes at the bedside Frequency of alcohol use: None Drug Abuse: None Lives with: Family Family History: Arthritis, CAD, CVA, Hyperlipidemia, Hypertension Patient has suicidal ideation: No Patient has homicidal ideation: No - Past Medical History Cardiac Medical History: Reports: Hx Hypercholesterolemia, Hx Hypertension Denies: Hx Heart Attack Pulmonary Medical History: Reports: Hx Bronchitis Denies: Hx Asthma, Hx COPD, Hx Pneumonia, Hx Tuberculosis Neurological Medical History: Denies: Hx Cerebrovascular Accident, Hx Seizures Endocrine Medical History: Reports: Hx Diabetes Mellitus Type 2 - pre-diabetic Renal/ Medical History: Denies: Hx Peritoneal Dialysis GI Medical History: Reports: Hx Gastroesophageal Reflux Disease, Hx Hiatal Hernia, Hx Ulcer, Hx Colonoscopy, Hx Endoscopy Musculoskeletal Medical History: Reports Hx Arthritis, Reports Hx Musculoskeletal Trauma - ACL tear Psychiatric Medical History: Reports: Hx Bipolar Disorder, Hx Depression Past Surgical History: Reports: Hx Inguinal Hernia - LIH REPAIR, Hx Orthopedic Surgery - rotator cuff. Denies: Hx Pacemaker - Immunizations Immunizations up to date: Yes Hx Diphtheria, Pertussis, Tetanus Vaccination: Yes Hx Pneumococcal Vaccination: 02/24/00 Review of Systems - Review of Systems Notes: REVIEW OF SYSTEMS: CONSTITUTIONAL : Denies fever, chills, or sweats. Denies weight loss, recent hospitalizations. EENT: Denies visual changes, eye pain. Denies s difficulty swallowing. CARDIOVASCULAR: Denies chest pain. Denies palpitations. Denies lower extremity edema. RESPIRATORY: Denies shortness of breath, wheezing. GASTROINTESTINAL: Denies abdominal pain or distention. Denies nausea, vomiting , or diarrhea. Denies blood in vomitus, stools, or per rectum. Denies black, tarry stools. Denies constipation. GENITOURINARY: Denies difficulty urinating, painful urination, frequency, blood in urine, testicular pain or penile discharge. MUSCULOSKELETAL: Denies back or neck pain or stiffness. Denies joint pain or swelling. SKIN: Denies rash, lesions or sores. HEMATOLOGIC : Denies easy bruising or bleeding. LYMPHATIC: Denies swollen glands. NEUROLOGICAL: Denies confusion or altered mental status. Denies loss of consciousness. Denies dizziness or lightheadedness. Denies weakness or paralysis. Denies problems difficulty with ambulation, slurred speech. Denies sensory loss, numbness, or tingling. Denies seizures. PSYCHIATRIC: Denies anxiety or stress. Denies depression, suicidal ideation, or Physical Exam - Vital signs Vitals: Temp Pulse Resp BP Pulse Ox 98.6 F 113 H 14 128/85 H 96 02/08/18 13:30 02/08/18 13:30 02/08/18 13:30 02/08/18 13:30 02/08/18 13:30 - Notes Notes: PHYSICAL EXAMINATION: GENERAL: Well-appearing, well-nourished and in no acute distress. HEAD: Atraumatic, normocephalic. Tenderness with palpation to the frontal and maxillary sinuses. EYES: Pupils equal round and reactive to light, extraocular movements intact, sclera anicteric, conjunctiva are normal. ENT: Edematous nasal turbinates, oropharynx with mild erythema without exudates. Moist mucous membranes. NECK: Normal range of motion, supple without lymphadenopathy LUNGS: Breath sounds clear to auscultation bilaterally and equal. No wheezes rales or rhonchi. HEART: Tachycardic, regular rhythm without murmurs ABDOMEN: Soft, nontender, nondistended abdomen. No guarding, no rebound. No masses appreciated. Musculoskeletal: Normal range of motion, no pitting or edema. No cyanosis. NEUROLOGICAL: Cranial nerves grossly intact. Normal speech, normal gait. Normal sensory, motor exams PSYCH: Normal mood, normal affect. SKIN: Warm, Dry, normal turgor, no rashes or lesions noted. Course - Re-evaluation Re-evalutation: Laboratory 02/08/18 16:21 Influenza A (Rapid) NEGATIVE Influenza B (Rapid) NEGATIVE Chest X-Ray 02/08/18 15:55 IMPRESSION: NO ACUTE RADIOGRAPHIC FINDING IN THE CHEST. Temp Pulse Resp BP Pulse Ox 98.6 F 113 H 14 128/85 H 96 02/08/18 13:30 02/08/18 13:30 02/08/18 13:30 02/08/18 13:30 02/08/18 13:30 02/08/18 17:32 Patient reports improvement of his nasal congestion and frontal headache. Influenza negative, chest x-ray no evidence of pneumonia. 02/08/18 19:49 Presentation is most consistent with a viral upper respiratory infection, sinusitis. Patient is overall well appearance, vitals within normal limits, well-hydrated. Patient denies any fever, neck pain neck pain, and has no evidence of meningismus on examination. Lungs are clear bilaterally. No evidence of respiratory distress. Patient has edematous nasal turbinates and tenderness to palpation to the frontal maxillary sinuses. Based on clinical exam and history, I do not suspect an acute pneumonia, meningitis, influenza, strep pharyngitis, or an acute encephalitis. Chest x-ray shows no evidence of pneumonia. Influenza negative. Will discharge patient with return precautions and followup recommendations. They are in agreement this plan have verbalized understanding return precautions. Patient did receive Sudafed, Shirley, Afrin. Patient requesting 2 weeks off from work. I advised him to that good handwashing, covering his mouth while coughing would help to prevent spread of his viral upper respiratory infection. No indication that patient should be off for 2 weeks. Patient was provided a prescription for Augmentin but urged to not fill the prescription unless symptoms persisted for greater than a week or he developed a fever. Patient was evaluated and treated as appropriate for the patient's presenting symptoms and complaint, with consideration of any critical or life threatening conditions that may be associated with their obtained history and exam as noted above. All results were discussed with patient. Patient provided the opportunity to ask questions, and express concerns. Patient was educated on treatments based on their presumed diagnosis as noted above. At this time we will discharge the patient with return precautions and follow-up recommendations. Verbal discharge instructions given a the bedside. Medication warnings reviewed. Patient is in agreement with this plan and has verbalized understanding of return precautions. After careful consideration I feel that that patient can be safely discharged from the emergency department, they were advised to followup with a primary care physician in 2-3 days. Dictation on this chart was performed using voice recognition software and may result in unintended grammatical, spelling, syntax or errors. 02/08/18 19:52 02/08/18 19:53 - Vital Signs Vital signs: Temp Pulse Resp BP Pulse Ox 98.6 F 113 H 14 128/85 H 96 02/08/18 13:30 02/08/18 13:30 02/08/18 13:30 02/08/18 13:30 02/08/18 13:30 - Diagnostic Test Radiology reviewed: Image reviewed, Reports reviewed Discharge - Discharge Clinical Impression: Nasal congestion Sinusitis Qualifiers: Sinusitis location: frontal Chronicity: acute Recurrence: not specified as recurrent Qualified Code(s): J01.10 - Acute frontal sinusitis, unspecified Pharyngitis Qualifiers: Pharyngitis/tonsillitis etiology: unspecified etiology Qualified Code(s): J02.9 - Acute pharyngitis, unspecified URI (upper respiratory infection) Qualifiers: URI type: unspecified URI Qualified Code(s): J06.9 - Acute upper respiratory infection, unspecified Condition: Good Disposition: HOME, SELF-CARE Instructions: Upper Respiratory Illness ([facility]), Sinusitis ([facility]) Additional Instructions: Your symptoms are most likely due to a viral infection it should resolve over the next 7-14 days. You should take [id number] guanfacine per bottle instructions to help thin the mucus. For nasal congestion: I would recommend that you get [id number] oxymetazoline also known is afrin. Use only per bottle instructions and be sure to never use this for more than 3 days if you can develop severe rebound congestion. You may also use tylenol or ibuprofen as needed for aches and thorat discomfort. Please be sure to drink plenty of fluids and get rest. Return to the emergency department he began having difficulty breathing, chest pain, persistent vomiting, or any other symptoms that are concerning to you. I have written you a prescription for Augmentin which I would like you to hold for the next 3 days. If you do not develop a fever or you do not need to take this medication. Follow up with your [id number] hours for further care or return to the ED IMMEDIATELY if symptoms worsen or you have any concerns. If you cannot afford to follow up with your primary care physician a list of low cost clinics have been provided at the end of your discharge papers as well. Most prescribed medications have multiple side effects. The safest thing to do is when filling your prescription speak to your pharmacist regarding possible interactions with your normal home medications and over the counter medications such as Ibuprofen, Tylenol, Benadryl. If you experience any symptoms that cause you discomfort or concern you should discontinue the medication immediately and return to the emergency room or call your primary care physician. Prescriptions: Amox Tr/Potassium Clavulanate [Augmentin 875-125 Tablet] 1 tab PO BID 10 Days # 20 tablet Pseudoephedrine HCl [Sudafed 12 Hour] 120 mg PO Q112H #14 tablet.er Forms: Elevated Blood Pressure, Return to Work
[2018-02-08 16:51] LABS: A TYPE INFLUENZA AG NEGATIVE (NEGATIVE); B INFLUENZA AG NEGATIVE (NEGATIVE)
--- NOTE | 2018-02-08 17:20 | RADIOLOGY REPORT (SQ) ---
EXAM DESCRIPTION: CHEST 2 VIEWS COMPLETED DATE/TIME: 02/08/2018 4:37 pm REASON FOR STUDY: cough COMPARISON: May 2017 EXAM PARAMETERS: NUMBER OF VIEWS: two views TECHNIQUE: Digital Frontal and Lateral radiographic views of the chest acquired. RADIATION DOSE: NA LIMITATIONS: none FINDINGS: LUNGS AND PLEURA: No opacities, masses or pneumothorax. No pleural effusion. MEDIASTINUM AND HILAR STRUCTURES: No masses or contour abnormalities. HEART AND VASCULAR STRUCTURES: Heart normal size. No evidence for failure. BONES: No acute findings. HARDWARE: None in the chest. OTHER: No other significant finding. IMPRESSION: NO ACUTE RADIOGRAPHIC FINDING IN THE CHEST. TECHNICAL DOCUMENTATION: JOB ID: [id number] [employer]- All Rights Reserved Reading location - IP/workstation name: [email or web address]
== END 2018-02-08 17:35 | disposition home or self-care (01) ==
LOC: ER 13:25
DX: J01.10 Acute frontal sinusitis, unspecified (principal); J06.9 Acute upper respiratory infection, unspecified; J02.9 Acute pharyngitis, unspecified; R51 Headache; R09.81 Nasal congestion; F17.210 Nicotine dependence, cigarettes, uncomplicated; E78.00 Pure hypercholesterolemia, unspecified; Z91.013 Allergy to seafood
CPT/HCPCS: 99406; 99284; 87804; 71046; J3490

== ENCOUNTER 2018-07-09 03:18 | Emergency (ER) | payer SELFPAY ==
--- NOTE | 2018-07-09 04:33 | ER Document Report ---
Addendum entered and electronically signed by CROW ARENAS LCSWA 07/09/18 12:16: Discharge - Discharge Clinical Impression: Suicidal ideation, Substance abuse Urinary tract infection Qualifiers: Urinary tract infection type: site unspecified Hematuria presence: without hematuria Qualified Code(s): N39.0 - Urinary tract infection, site not specified Condition: Good Disposition: HOME, SELF-CARE Instructions: Urinary Tract Infection ([facility]) Additional Instructions: You have been evaluated both medical and behavioral health teams have been deemed appropriate for discharge. Please follow-up with [facility] services for continued assistance in obtaining detox and substance abuse treatment. Your urine shows findings consistent with a urinary tract infection. Please take all the antibiotics as directed even if your symptoms have improved. Please follow-up with your primary care physician as needed. Return to emergency room if you develop fever >101F, persistent vomiting, become leth argic, have severe pain in your sides, or any other symptoms that are concerning to you. CHRONIC ALCOHOLISM and ALCOHOL ABUSE: Your evaluation reveals evidence of chronic alcoholism, an addiction to alcohol. The tendency to alcoholism may be inherited. Chronic use of alcohol weakens muscles, causes fatty deposits in the liver, damages the stomach, makes you more prone to infections, and can cause defects in unborn children. In the long run, brain atrophy and cirrhosis of the liver result. You are also at greater risk for certain types of cancer, such as cancer of the mouth, throat, stomach, and liver. Counselling services are available to help you. In-hospital treatment programs often help. Support groups such as Alcoholics Anonymous can be very useful in beating this addiction. Your physician can make a referral for you. As alcoholics often are prone to other addictions, you should discuss your use of any other medications with the doctor. ALCOHOL WITHDRAWAL: Your symptoms are caused by alcohol withdrawal. After a period of frequent drinking, the brain and body are changed by the alcohol. When you quit or reduce your drinking, the nervous system becomes unstable. Withdrawal symptoms can start a few hours after your last drink, but sometimes don't begin until a couple of days later. Symptoms can include shakiness, sweating, insomnia, nausea, vomiting, fearfulness, hallucinations, and seizures. In addition to the acute effects of alcohol withdrawal, we often have to deal with the medical effects of alcoholism. These problems often include dehydration, stomach irritation, intestinal bleeding, low blood sugar, liver disease, and pancreas inflammation. Treatment for alcohol withdrawal includes mild sedatives, vitamins, and fluids. You need to be with someone who can help if symptoms become severe. Many patients can withdraw at home. Admission to the hospital or a detox facility may be necessary if withdrawal symptoms are severe and uncontrollable. Abstaining from alcohol is the only effective long-term treatment. If you start drinking again, you will not be able to control yourself after the first drink. Treatment programs are available. In addition, many alcoholics benefit from Alcoholics Anonymous or other support groups available through your counselor or judaism medical education specialist. AL-ANON and ALA-TEEN are support groups for friends and family members of an alcoholic. Go to the emergency room if you develop persistent vomiting, severe abdominal pain, fever, shortness of breath, hallucinations, uncontrollable tremors, or seizures. COCAINE ABUSE: Cocaine causes many dangerous medical problems. Problems can occur even with "usual" amounts. Cocaine affects judgement, creating a sense of invulnerability. Cocaine users often make bad decisions that seem "great" at the time. Most cocaine users eventually will be hurt by bad job performance, damaged personal relations, crime, and unsafe sexual practices. Toxic effects of cocaine can include seizures, hallucinations, delusions, high blood pressure, heart damage, or sudden . There's always the risk of a "bad batch." But heart attacks, brain hemorrhages, or cardiac arrest can occur unpredictably even with "normal" use. Injection of cocaine is risky for abscesses, endocarditis (heart infection), pneumonia, and AIDS. Withdrawal from cocaine often causes anxiety and drug cravings. Some users become paranoid and psychotic. Many treatment programs are available, but you must make the decision to quit. Medication can be prescribed to control the symptoms of cocaine toxicity (beta blockers or benzodiazepines). Withdrawal symptoms may require gordon quilizers. DEPRESSION: Your evaluation reveals that you have mental depression. While symptoms may be vague, they often include disturbance of sleep, fatigue, loss of appetite, and general loss of interest in life. While depression may be a side effect of drugs, or a reaction to a major change in your life, many cases have no known cause. If depression is acute, and related to a major loss in your life, you can expect it to clear completely with time. If you have been depressed a long time, are prone to repeated bouts of depression or low mood, or have been thinking of suicide, get help. Depression can be treated with anti-depressant medication and counselling. Long-term depression will often take a few weeks to clear, even with appropriate medication. Follow-up care is important. SUICIDAL IDEATION: Suicidal ideation is a common medical term for thoughts about suicide, which may be as detailed as a formulated plan, without the suicidal act itself. Although most people who undergo suicidal ideation do not commit suicide, some go on to make suicide attempts. The range of suicidal ideation varies greatly from fleeting to detailed planning, role playing, and unsuccessful attempts. While thoughts about suicide are common, most people do not carry out serious actions to commit suicide. Based upon your evaluation and discussion with you, we do not believe you are currently at risk to act upon your thoughts of suicide. You have agreed to return to the Emergency Department, at any time, if you feel inclined to act upon your suicidal thoughts. FOLLOW-UP CARE: If you have been referred to a physician for follow-up care, call the [facility] office for an appointment as you were instructed or within the next two days. If you experience worsening or a significant change in your symptoms, notify the physician immediately or return to the Emergency Department at any time for re-evaluation. Prescriptions: Cephalexin Monohydrate [Keflex 500 mg Capsule] 500 mg PO BID 7 Days #14 capsule Forms: Elevated Blood Pressure Referrals: [facility] Crisis Team [Outside] - Follow up as needed Original Note: ED General - General Chief Complaint: Suicidal Ideation Stated Complaint: SUICIDAL IDEATIONS Time Seen by Provider: 07/09/18 04:20 Mode of Arrival: Ambulatory Information source: Patient, Relative, ON LICENSE OF [facility] Records Notes: 57-year-old male with bipolar disorder, depression, type 2 diabetes presents with complaint of suicidal ideation, increased to situational anxiety at home, alcohol and crack cocaine use. Patient states that he has been off of his Latuda, Prozac, Vistaril and Prilosec since April. He does see [facility] services and usually was provided samples of these medications. Patient states that over the last 2 months he has been on a crack cocaine and alcohol binge. He states that he has been driving while intoxicated and "stealing for the habit". Patient also reports problems in his marriage and is requesting help. To note patient reports getting a new job at 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 TRAVEL OUTSIDE OF THE [place] IN LAST 30 DAYS: No - HPI Onset: Other Onset/Duration: Gradual Quality of pain: No pain Severity: None Pain Level: Denies Associated symptoms: None Exacerbated by: Denies Relieved by: Denies Similar symptoms previously: Yes Recently seen / treated by doctor: No - Related Data Allergies/Adverse Reactions: chlorpheniramine [From Theraflu Cold & Sore Throat] Allergy (Unknown, Verified 02/08/18 13:25) pseudoephedrine HCl [From Theraflu Cold & Sore Throat] Allergy (Unknown, Verified 02/08/18 13:25) ketorolac tromethamine [From Toradol] Allergy (Verified 02/08/18 13:25) Hives Shellfish * [Shellfish] Allergy (Verified 02/08/18 13:25) swelling tramadol [Tramadol] Allergy (Verified 02/08/18 13:25) Hives tramadol HCl [From Ultram] Allergy (Verified 02/08/18 13:25) Hives Past Medical History - General Information source: Patient, ON LICENSE OF [facility] Records - Social History Smoking Status: Current Every Day Smoker Cigarette use (# per day): Yes - 12 Smoking Education Provided: Yes - Smoking cessation counseling was provided for 4 minutes at the bedside Frequency of alcohol use: Heavy Drug Abuse: Cocaine Lives with: Family Family History: Arthritis, CAD, CVA, Hyperlipidemia, Hypertension - Past Medical History Cardiac Medical History: Reports: Hx Hypercholesterolemia, Hx Hypertension Denies: Hx Heart Attack Pulmonary Medical History: Reports: Hx Bronchitis Denies: Hx Asthma, Hx COPD, Hx Pneumonia, Hx Tuberculosis Neurological Medical History: Denies: Hx Cerebrovascular Accident, Hx Seizures Endocrine Medical History: Reports: Hx Diabetes Mellitus Type 2 - pre-diabetic Renal/ Medical History: Denies: Hx Peritoneal Dialysis GI Medical History: Reports: Hx Gastroesophageal Reflux Disease, Hx Hiatal Hernia, Hx Ulcer, Hx Colonoscopy, Hx Endoscopy Musculoskeletal Medical History: Reports Hx Arthritis, Reports Hx Musculoskeletal Trauma - ACL tear Psychiatric Medical History: Reports: Hx Bipolar Disorder, Hx Depression Past Surgical History: Reports: Hx Inguinal Hernia - [facility]H REPAIR, Hx Orthopedic Surgery - rotator cuff. Denies: Hx Pacemaker - Immunizations Immunizations up to date: Yes Hx Diphtheria, Pertussis, Tetanus Vaccination: Yes Hx Pneumococcal Vaccination: 02/24/00 Review of Systems - Review of Systems Notes: REVIEW OF SYSTEMS: CONSTITUTIONAL : Denies fever, chills, or sweats. Denies recent illness. Denies weight loss, recent hospitalizations. EENT: Denies visual changes, eye pain. Denies sore throat, oral lesions, difficulty swallowing. CARDIOVASCULAR: Denies chest pain. Denies palpitations. Denies lower extremity edema. RESPIRATORY: Denies cough. Denies shortness of breath, wheezing. GASTROINTESTINAL: Denies abdominal pain or distention. Denies nausea, vomiting, or diarrhea. Denies blood in vomitus, stools, or per rectum. Denies black, tarry stools. Denies constipation. GENITOURINARY: Denies difficulty urinating, painful urination, frequency, blood in urine, testicular pain or penile discharge. MUSCULOSKELETAL: Denies back or neck pain or stiffness. Denies joint pain or swelling. SKIN: Denies rash, lesions or sores. HEMATOLOGIC : Denies easy bruising or bleeding. LYMPHATIC: Denies swollen glands. NEUROLOGICAL: Denies confusion or altered mental status. Denies loss of consciousness. Denies dizziness or lightheadedness. Denies headache. Denies weakness or paralysis. Denies problems difficulty with ambulation, slurred speech. Denies sensory loss, numbness, or tingling. Denies seizures. PSYCHIATRIC: + anxiety or stress. + depression, suicidal ideation, Physical Exam - Vital signs Vitals: Temp Pulse Resp BP Pulse Ox 97.8 F 90 16 139/93 H 100 07/09/18 03:23 07/09/18 03:23 07/09/18 03:23 07/09/18 03:23 07/09/18 03:23 - Notes Notes: PHYSICAL EXAMINATION: GENERAL: Well-appearing, well-nourished and in no acute distress. HEAD: Atraumatic, normocephalic. EYES: Pupils equal round and reactive to light, extraocular movements intact, sclera anicteric, conjunctiva are normal. ENT: Nares patent, oropharynx clear without exudates. Moist mucous membranes. NECK: Normal range of motion, supple without lymphadenopathy LUNGS: Breath sounds clear to auscultation bilaterally and equal. No wheezes rales or rhonchi. HEART: Regular rate and rhythm without murmurs ABDOMEN: Soft, nontender, nondistended abdomen. No guarding, no rebound. No masses appreciated. Musculoskeletal: Normal range of motion, no pitting or edema. No cyanosis. NEUROLOGICAL: Cranial nerves grossly intact. Normal speech, normal gait. Normal sensory, motor exams PSYCH: Normal mood, normal affect. SKIN: Warm, Dry, normal turgor, no rashes or lesions noted. Course - Re-evaluation Re-evalutation: Laboratory 07/09/18 07/09/18 07/09/18 04:50 04:50 04:50 WBC 4.3 RBC 4.44 Hgb 13.4 L Hct 39.7 MCV 89 MCH 30.1 MCHC 33.7 RDW 14.9 H Plt Count 206 Seg Neutrophils % 57.5 Lymphocytes % 28.0 Monocytes % 10.6 Eosinophils % 2.9 Basophils % 1.0 Absolute Neutrophils 2.5 Absolute Lymphocytes 1.2 Absolute Monocytes 0.5 Absolute Eosinophils 0.1 Absolute Basophils 0.0 Sodium 141.4 Potassium 3.9 Chloride 103 Carbon Dioxide 25 Anion Gap 13 BUN 13 Creatinine 1.11 Est GFR ( Amer) > 60 Est GFR (Non-Af Amer) > 60 Glucose 95 Calcium 9.6 Total Bilirubin 0.4 Direct Bilirubin 0.2 Neonat Total Bilirubin Not Reportable Neonat Direct Bilirubin Not Reportable Neonat Indirect Bili Not Reportable AST 42 ALT 39 Alkaline Phosphatase 52 Total Protein 7.1 Albumin 3.9 Urine Color YELLOW Urine Appearance SLIGHTLY-CLOUDY Urine pH 5.0 Ur Specific [place] 1.013 Urine Protein NEGATIVE Urine Glucose (UA) NEGATIVE Urine Ketones NEGATIVE Urine Blood NEGATIVE Urine Nitrite NEGATIVE Urine Bilirubin NEGATIVE Urine Urobilinogen NEGATIVE Ur Leukocyte Esterase LARGE H Urine WBC (Auto) 77 Urine RBC (Auto) 2 Squamous Epi Cells Auto 2 Urine Mucus (Auto) RARE Urine Ascorbic Acid NEGATIVE Salicylates < 1.0 L Acetaminophen < 10 L Serum Alcohol 13 07/09/18 04:33 57-year-old male with bipolar disorder, depression, type 2 diabetes presents with complaint of suicidal ideation, increased to situational anxiety at home, alcohol and crack cocaine use. Patient states that he has been off of his Latuda, Prozac, Vistaril and Prilosec since April. He does see [facility] services and usually was provided samples of these medications. Patient states that over the last 2 months he has been on a crack cocaine and alcohol binge. He states that he has been driving while intoxicated and "stealing for the habit". 07/09/18 05:49 Patient found to have urinary tract infection for which Keflex was provided. - Vital Signs Vital signs: Temp Pulse Resp BP Pulse Ox 97.8 F 90 16 139/93 H 100 07/09/18 03:23 07/09/18 03:23 07/09/18 03:23 07/09/18 03:23 07/09/18 03:23 - Laboratory Result Diagrams: 07/09/18 04:50 07/09/18 04:50 Laboratory results interpreted by me: 07/09/18 07/09/18 07/09/18 04:50 04:50 04:50 Hgb 13.4 L RDW 14.9 H Ur Leukocyte Esterase LARGE H Salicylates < 1.0 L Acetaminophen < 10 L Discharge - Discharge Clinical Impression: Suicidal ideation Urinary tract infection Qualifiers: Urinary tract infection type: site unspecified Hematuria presence: without hematuria Qualified Code(s): N39.0 - Urinary tract infection, site not specified Condition: Good Disposition: OTHER Instructions: Urinary Tract Infection ([facility]) Additional Instructions: Your urine shows findings consistent with a urinary tract infection. Please take all the antibiotics as directed even if your symptoms have improved. Please follow-up with your primary care physician as needed. Return to emergency room if you develop fever >101F, persistent vomiting, become lethargic, have severe pain in your sides, or any other symptoms that are concerning to you. Prescriptions: Cephalexin Monohydrate [Keflex 500 mg Capsule] 500 mg PO BID 7 Days #14 capsule Forms: Elevated Blood Pressure
[2018-07-09 05:14] LABS: ABSOLUTE EOSINOPHILS # (AUTO) 0.1 10^3/uL (0.0-0.6); ABSOLUTE LYMPHOCYTES (AUTO) 1.2 10^3/uL (0.5-4.7); ABSOLUTE MONOCYTES (AUTO) 0.5 10^3/uL (0.1-1.4); ABSOLUTE NEUT (AUTO) 2.5 10^3/uL (1.7-8.2); EOSINOPHILS % (AUTO) 2.9 % (0-6); HEMATOCRIT 39.7 % (37.9-51.0); HEMOGLOBIN 13.4 g/dL (13.5-17.0); MEAN CORPUSCULAR HEMOGLOBIN 30.1 pg (27.0-33.4); MEAN CORPUSCULAR HGB CONC 33.7 g/dL (32.0-36.0); MEAN CORPUSCULAR VOLUME 89 fl (80-97); MONOCYTES % (AUTO) 10.6 % (3-13); PLATELET COUNT 206 10^3/uL (150-450); RED BLOOD COUNT 4.44 10^6/uL (4.35-5.55); RED CELL DISTRIBUTION WIDTH 14.9 % (11.5-14.0); SEGMENTED NEUTROPHILS % (AUTO) 57.5 % (42-78); TOTAL CELLS COUNTED % (AUTO) 100 %; WHITE BLOOD COUNT 4.3 10^3/uL (4.0-10.5)
[2018-07-09 05:33] LABS: ALANINE AMINOTRANSFERASE 39 U/L (21-72); ALBUMIN 3.9 g/dL (3.5-5.0); ALCOHOL 13 mg/dL (NONE DETECTED); ALKALINE PHOSPHATASE 52 U/L (38-126); ANION GAP 13 (5-19); ASPARTATE AMINO TRANSFERASE 42 U/L (17-59); BILIRUBIN,DIRECT 0.2 mg/dL (0.0-0.4); BILIRUBIN,TOTAL 0.4 mg/dL (0.2-1.3); BLOOD UREA NITROGEN 13 mg/dL (7-20); CALCIUM 9.6 mg/dL (8.4-10.2); CARBON DIOXIDE 25 mmol/L (22-30); CHLORIDE 103 mmol/L (98-107); GLUCOSE 95 mg/dL (75-110); POTASSIUM 3.9 mmol/L (3.6-5.0); SODIUM 141.4 mmol/L (137-145); TOTAL PROTEIN 7.1 g/dL (6.3-8.2)
[2018-07-09 05:35] LABS: ACETAMINOPHEN < 10 ug/mL (10-30); SALICYLATE < 1.0 mg/dL (2.0-20.0)
[2018-07-09 05:36] LABS: APPEARANCE,URINE SLIGHTLY-CLOUDY; BILIRUBIN,URINE NEGATIVE (NEGATIVE); COLOR,URINE YELLOW; GLUCOSE, URINE NEGATIVE (NEGATIVE); KETONES,URINE NEGATIVE (NEGATIVE); LEUKOCYTE ESTERASE,URINE LARGE (NEGATIVE); NITRITE,URINE NEGATIVE (NEGATIVE); PROTEIN,URINE NEGATIVE (NEGATIVE); URINE SPECIFIC GRAVITY 1.013; UROBILINOGEN,URINE NEGATIVE mg/dL (<2.0)
[2018-07-09 05:42] LABS: URINE AMPHETAMINES SCREEN NEGATIVE; URINE BARBITURATES SCREEN NEGATIVE; URINE BENZODIAZEPINES SCREEN NEGATIVE; URINE COCAINE SCREEN UNCONFIRMED POSITIVE; URINE MARIJUANA (THC) SCREEN NEGATIVE; URINE METHADONE SCREEN NEGATIVE; URINE PHENCYCLIDINE SCREEN NEGATIVE
[2018-07-09] MEDS ORDERED: CEPHALEXIN 500 MG CAPSULE PO ONE (05:48)
--- NOTE | 2018-07-09 07:41 | EKG REPORT ---
SEVERITY:- NORMAL ECG - SINUS RHYTHM : Confirmed by: Spencer Ballesteros MD 09-Jul-2018 07:40:38
--- NOTE | 2018-07-09 09:24 | ER Document Report ---
Doctor's Note Notes: 07/09/18 09:23 ER psychiatric rounding note Patient still requesting detox. Still having thoughts of hurting himself witho ut any specific plan other than using more drugs and alcohol. he is resting comfortably and sleeping and had to be awoke he does not appear to be in acute withdrawal at this time.
[2018-07-09 11:53] VITALS: BP 134/86
[2018-07-09 12:41] LABS: CHLAM PCR NOT DETECTED (NOT DETECT); GON PCR NOT DETECTED (NOT DETECT)
== END 2018-07-09 12:53 | disposition home or self-care (01) ==
LOC: ER 03:18
DX: R45.851 Suicidal ideations (principal); N39.0 Urinary tract infection, site not specified; F19.10 Other psychoactive substance abuse, uncomplicated; F17.210 Nicotine dependence, cigarettes, uncomplicated; E78.00 Pure hypercholesterolemia, unspecified; I10 Essential (primary) hypertension; E11.9 Type 2 diabetes mellitus without complications
CPT/HCPCS: 36415; 80053; 80307; 81001; 85025; 87491; 87591; 93005; 93010; 99285

== ENCOUNTER 2018-09-09 12:09 | Emergency (ER) | payer SELFPAY ==
[2018-09-09 12:16] VITALS: BP 149/86
--- NOTE | 2018-09-09 12:39 | ER Document Report ---
ED Medical Screen (RME) - General Stated Complaint: PSYCH Time Seen by Provider: 09/09/18 12:23 TRAVEL OUTSIDE OF THE [place] IN LAST 30 DAYS: No - HPI Notes: 09/09/18 12:36 Patient is a 57-year-old male with a history of bipolar disorder, depression, HTN, type 2 diabetes presents with complaint of suicidal ideation/planning and homicidal ideation. He is accompanied by [facility] because he told them that if he does not get help he will drink himself to or jump off of a bridge with noted previous attempt. IFS also states that he feels like he will "hurt anyone that he can get his hands on." Patient has been using cocaine and drinking abundant amount of alcohol. Denies MEJÍA, fever, neck pain, URI, CP, SOB, Abd pain, dysuria, back pain, or rash. I have treated and performed a rapid initial assessment of this patient. A comprehensive ED assessment and evaluation of the patient, analysis of test results and completion of medical decision making process will be conducted by additional ED providers. PHYSICAL EXAMINATION: GENERAL: Well-appearing, well-nourished and in no acute distress. A&Ox4. Answers questions appropriately. LUNGS: Breath sounds clear to auscultation bilaterally and equal. No wheezes rales or rhonchi. HEART: Regular rate and rhythm without murmurs, rubs, gallops. Extremities: No cyanosis, clubbing, or edema b/l. NEUROLOGICAL: Normal speech, normal gait. Cranial nerves grossly intact. PSYCH: Normal mood, normal affect. - Related Data Allergies/Adverse Reactions: chlorpheniramine [From Theraflu Cold & Sore Throat] Allergy (Unknown, Verified 09/09/18 12:10) pseudoephedrine HCl [From Theraflu Cold & Sore Throat] Allergy (Unknown, Verified 09/09/18 12:10) ketorolac tromethamine [From Toradol] Allergy (Verified 09/09/18 12:10) Hives Shellfish * [Shellfish] Allergy (Verified 09/09/18 12:10) swelling tramadol [Tramadol] Allergy (Verified 09/09/18 12:10) Hives tramadol HCl [From Ultram] Allergy (Verified 09/09/18 12:10) Hives Past Medical History - Social History Frequency of alcohol use: Heavy Drug Abuse: Cocaine - Past Medical History Cardiac Medical History: Reports: Hx Hypercholesterolemia, Hx Hypertension Denies: Hx Heart Attack Pulmonary Medical History: Reports: Hx Bronchitis Denies: Hx Asthma, Hx COPD, Hx Pneumonia, Hx Tuberculosis Neurological Medical History: Denies: Hx Cerebrovascular Accident, Hx Seizures Endocrine Medical History: Reports: Hx Diabetes Mellitus Type 2 - pre-diabetic Renal/ Medical History: Denies: Hx Peritoneal Dialysis GI Medical History: Reports: Hx Gastroesophageal Reflux Disease, Hx Hiatal Hernia, Hx Ulcer, Hx Colonoscopy, Hx Endoscopy Musculoskeltal Medical History: Reports Hx Arthritis, Reports Hx Musculoskeletal Trauma - ACL tear Psychiatric Medical History: Reports: Hx Bipolar Disorder, Hx Depression Past Surgical History: Reports: Hx Inguinal Hernia - LIH REPAIR, Hx Orthopedic Surgery - rotator cuff. Denies: Hx Pacemaker - Immunizations Immunizations up to date: Yes Hx Diphtheria, Pertussis, Tetanus Vaccination: Yes Physical Exam - Vital signs Vitals: Temp Pulse Resp BP Pulse Ox 98.4 F 84 18 149/86 H 95 09/09/18 12:15 09/09/18 12:15 09/09/18 12:15 09/09/18 12:15 09/09/18 12:15 Course - Vital Signs Vital signs: Temp Pulse Resp BP Pulse Ox 98.4 F 84 18 149/86 H 95 09/09/18 12:15 09/09/18 12:15 09/09/18 12:15 09/09/18 12:15 09/09/18 12:15
[2018-09-09 13:47] LABS: APPEARANCE,URINE SLIGHTLY-CLOUDY; BILIRUBIN,URINE NEGATIVE (NEGATIVE); COLOR,URINE YELLOW; GLUCOSE, URINE NEGATIVE (NEGATIVE); KETONES,URINE NEGATIVE (NEGATIVE); LEUKOCYTE ESTERASE,URINE LARGE (NEGATIVE); NITRITE,URINE NEGATIVE (NEGATIVE); PROTEIN,URINE NEGATIVE (NEGATIVE); URINE SPECIFIC GRAVITY 1.018; UROBILINOGEN,URINE NEGATIVE mg/dL (<2.0)
[2018-09-09 14:05] LABS: URINE AMPHETAMINES SCREEN NEGATIVE; URINE BARBITURATES SCREEN NEGATIVE; URINE BENZODIAZEPINES SCREEN NEGATIVE; URINE COCAINE SCREEN UNCONFIRMED POSITIVE; URINE MARIJUANA (THC) SCREEN NEGATIVE; URINE METHADONE SCREEN NEGATIVE; URINE PHENCYCLIDINE SCREEN NEGATIVE
[2018-09-09 14:09] LABS: ABSOLUTE EOSINOPHILS # (AUTO) 0.1 10^3/uL (0.0-0.6); ABSOLUTE MONOCYTES (AUTO) 0.3 10^3/uL (0.1-1.4); ABSOLUTE NEUT (AUTO) 2.3 10^3/uL (1.7-8.2); BASOPHILS % (AUTO) 1.3 % (0-2); EOSINOPHILS % (AUTO) 1.8 % (0-6); HEMATOCRIT 44.7 % (37.9-51.0); HEMOGLOBIN 15.1 g/dL (13.5-17.0); LYMPHOCYTES % (AUTO) 26.4 % (13-45); MEAN CORPUSCULAR HEMOGLOBIN 29.5 pg (27.0-33.4); MEAN CORPUSCULAR HGB CONC 33.9 g/dL (32.0-36.0); MEAN CORPUSCULAR VOLUME 87 fl (80-97); MONOCYTES % (AUTO) 9.1 % (3-13); PLATELET COUNT 248 10^3/uL (150-450); RED BLOOD COUNT 5.12 10^6/uL (4.35-5.55); RED CELL DISTRIBUTION WIDTH 14.2 % (11.5-14.0); SEGMENTED NEUTROPHILS % (AUTO) 61.4 % (42-78); TOTAL CELLS COUNTED % (AUTO) 100 %; WHITE BLOOD COUNT 3.8 10^3/uL (4.0-10.5)
[2018-09-09 14:33] LABS: ALANINE AMINOTRANSFERASE 28 U/L (21-72); ALBUMIN 4.5 g/dL (3.5-5.0); ALKALINE PHOSPHATASE 68 U/L (38-126); ANION GAP 9 (5-19); ASPARTATE AMINO TRANSFERASE 36 U/L (17-59); BILIRUBIN,DIRECT 0.2 mg/dL (0.0-0.4); BILIRUBIN,TOTAL 0.5 mg/dL (0.2-1.3); BLOOD UREA NITROGEN 16 mg/dL (7-20); CALCIUM 9.8 mg/dL (8.4-10.2); CARBON DIOXIDE 31 mmol/L (22-30); CHLORIDE 100 mmol/L (98-107); GLUCOSE 115 mg/dL (75-110); POTASSIUM 4.6 mmol/L (3.6-5.0); SODIUM 140.3 mmol/L (137-145)
[2018-09-09 14:36] LABS: ACETAMINOPHEN < 10 ug/mL (10-30); ALCOHOL < 10 mg/dL (NONE DETECTED); SALICYLATE < 1.0 mg/dL (2.0-20.0)
--- NOTE | 2018-09-09 14:57 | ER Document Report ---
ED General <ARENASCROW - Last Filed: 09/09/18 17:07> - General Mode of Arrival: Ambulatory Information source: Patient, [facility] Records TRAVEL OUTSIDE OF THE [place] IN LAST 30 DAYS: No - HPI Onset: Yesterday Onset/Duration: Sudden Quality of pain: No pain Severity: None Pain Level: Denies Associated symptoms: Body/muscle aches. denies: Chest pain, Nonproductive cough, Productive cough, Diarrhea, Fever, Hoarseness, Nausea, Vomiting Exacerbated by: Denies Relieved by: Denies Similar symptoms previously: Yes Recently seen / treated by doctor: No <VITA WEEKS - Last Filed: 09/10/18 00:59> - General Chief Complaint: Suicidal Ideation Stated Complaint: PSYCH Time Seen by Provider: 09/09/18 12:23 Primary Care Provider: [facility] [Outside] - Follow up as needed Notes: Patient is a 57-year-old male with a history of bipolar disorder, depression, HTN, type 2 diabetes presents with complaint of suicidal ideation/planning and homicidal ideation. He is accompanied by [facility] because he told them that if he does not get help he will drink himself to or jump off of a bridge with noted previous attempt. IFS also states that he feels like he will "hurt anyone that he can get his hands on." Patient has been using cocaine and drinking abundant amount of alcohol. Patient last use drugs and alcohol yesterday. States that he used crack cocaine. Patient has not been taking any of his medications because "they are not working". Denies MEJÍA, fever, neck pain, URI, CP, SOB, Abd pain, dysuria, back pain, or rash. (VITA WEEKS) - Related Data Allergies/Adverse Reactions: chlorpheniramine [From Theraflu Cold & Sore Throat] Allergy (Unknown, Verified 09/09/18 12:10) pseudoephedrine HCl [From Theraflu Cold & Sore Throat] Allergy (Unknown, Verified 09/09/18 12:10) ketorolac tromethamine [From Toradol] Allergy (Verified 09/09/18 12:10) Hives Shellfish * [Shellfish] Allergy (Verified 09/09/18 12:10) swelling tramadol [Tramadol] Allergy (Verified 09/09/18 12:10) Hives tramadol HCl [From Ultram] Allergy (Verified 09/09/18 12:10) Hives Past Medical History - General Information source: Patient - Social History Smoking Status: Current Every Day Smoker Cigarette use (# per day): Yes - 15 Smoking Education Provided: Yes - Smoking cessation counseling was provided for 4 minutes at the bedside Frequency of alcohol use: Heavy Drug Abuse: Cocaine Lives with: Spouse/Significant other Family History: Arthritis, CAD, CVA, Hyperlipidemia, Hypertension Patient has suicidal ideation: Yes Patient has homicidal ideation: Yes - Past Medical History Cardiac Medical History: Reports: Hx Hypercholesterolemia, Hx Hypertension Denies: Hx Heart Attack Pulmonary Medical History: Reports: Hx Bronchitis Denies: Hx Asthma, Hx COPD, Hx Pneumonia, Hx Tuberculosis Neurological Medical History: Denies: Hx Cerebrovascular Accident, Hx Seizures Endocrine Medical History: Reports: Hx Diabetes Mellitus Type 2 - pre-diabetic Renal/ Medical History: Denies: Hx Peritoneal Dialysis GI Medical History: Reports: Hx Gastroesophageal Reflux Disease, Hx Hiatal Hernia, Hx Ulcer, Hx Colonoscopy, Hx Endoscopy Musculoskeletal Medical History: Reports Hx Arthritis, Reports Hx Musculoskeletal Trauma - ACL tear Psychiatric Medical History: Reports: Hx Bipolar Disorder, Hx Depression Past Surgical History: Reports: Hx Inguinal Hernia - LIH REPAIR, Hx Orthopedic Surgery - rotator cuff. Denies: Hx Pacemaker - Immunizations Immunizations up to date: Yes Hx Diphtheria, Pertussis, Tetanus Vaccination: Yes Hx Pneumococcal Vaccination: 02/24/00 <VITA WEEKS E - Last Filed: 09/10/18 00:59> Review of Systems <VITA WEEKS E - Last Filed: 09/10/18 00:59> - Review of Systems Notes: REVIEW OF SYSTEMS: CONSTITUTIONAL : Denies fever, chills, or sweats. Denies recent illness. Denies weight loss, recent hospitalizations. EENT: Denies visual changes, eye pain. Denies sore throat, oral lesions, difficulty swallowing. CARDIOVASCULAR: Denies chest pain. Denies palpitations. Denies lower extremity edema. RESPIRATORY: Denies cough. Denies shortness of breath, wheezing. GASTROINTESTINAL: Denies abdominal pain or distention. Denies nausea, vomiting, or diarrhea. Denies blood in vomitus, stools, or per rectum. Denies black, tarry stools. Denies constipation. GENITOURINARY: Denies difficulty urinating, painful urination, frequency, blood in urine, testicular pain or penile discharge. MUSCULOSKELETAL: Denies back or neck pain or stiffness. Denies joint pain or swelling. SKIN: Denies rash, lesions or sores. HEMATOLOGIC : Denies easy bruising or bleeding. LYMPHATIC: Denies swollen glands. NEUROLOGICAL: Denies confusion or altered mental status. Denies loss of consciousness. Denies dizziness or lightheadedness. Denies headache. Denies weakness or paralysis. Denies problems difficulty with ambulation, slurred speech. Denies sensory loss, numbness, or tingling. Denies seizures. PSYCHIATRIC: + anxiety or stress. + depression, suicidal ideation, homicidal ideation. Denies visual and auditory hallucinations. (VITA WEEKS) Physical Exam <VITA WEEKS - Last Filed: 09/10/18 00:59> - Vital signs Vitals: Temp Pulse Resp BP Pulse Ox 98.4 F 84 18 149/86 H 95 09/09/18 12:15 09/09/18 12:15 09/09/18 12:15 09/09/18 12:15 09/09/18 12:15 - Notes Notes: PHYSICAL EXAMINATION: GENERAL: Well-appearing, well-nourished and in no acute distress. HEAD: Atraumatic, normocephalic. EYES: Pupils equal round and reactive to light, extraocular movements intact, sclera anicteric, conjunctiva are normal. ENT: Nares patent, oropharynx clear without exudates. Moist mucous membranes. NECK: Normal range of motion, supple without lymphadenopathy LUNGS: Breath sounds clear to auscultation bilaterally and equal. No wheezes rales or rhonchi. HEART: Regular rate and rhythm without murmurs ABDOMEN: Soft, nontender, nondistended abdomen. No guarding, no rebound. No masses appreciated. Musculoskeletal: Normal range of motion, no pitting or edema. No cyanosis. NEUROLOGICAL: Cranial nerves grossly intact. Normal speech, normal gait. Normal sensory, motor exams PSYCH: Normal mood, normal affect. SKIN: Warm, Dry, normal turgor, no rashes or lesions noted. (VITA WEEKS) Course - Laboratory Result Diagrams: 09/09/18 14:00 09/09/18 14:00 <CROW ARENAS - Last Filed: 09/09/18 17:07> - Laboratory Result Diagrams: 09/09/18 14:00 09/09/18 14:00 <WEEKSVITALENA - Last Filed: 09/10/18 00:59> - Re-evaluation Re-evalutation: 09/09/18 14:57 Temp Pulse Resp BP Pulse Ox 98.4 F 84 18 149/86 H 95 09/09/18 12:15 09/09/18 12:15 09/09/18 12:15 09/09/18 12:15 09/09/18 12:15 57-year-old male with a history of alcohol and substance abuse presents with suicidal and homicidal ideation. Patient has been seen for similar symptoms in the past. Vitals reviewed and patient is hypertensive but afebrile. He does not appear toxic or dehydrated. He is in no acute distress. Previous medical records and nursing notes reviewed. Patient is cooperative, states "I need help her I am going to go to penitentiary". Awaiting behavioral health input. Patient is having passive suicidal ideation after a crack cocaine binge. Behavioral health recommends discharge home. When patient told he would be discharged home he became angry, began yelling and security was called. Review of previous visit :57-year-old male with bipolar disorder, depression, type 2 diabetes presents with complaint of suicidal ideation, increased to situational anxiety at home, alcohol and crack cocaine use. Patient states that he has been off of his Latuda, Prozac, Vistaril and Prilosec since April. He does see [facility] and usually was provided samples of these medications. Patient states that over the last 2 months he has been on a crack cocaine and alcohol binge. He states that he has been driving while intoxicated and "stealing for the habit". Patient also reports problems in his marriage and is requesting help. 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 09/09/18 15:06 09/10/18 00:58 (VITA WEEKS) - Vital Signs Vital signs: Temp Pulse Resp BP Pulse Ox 98.4 F 84 18 149/86 H 95 09/09/18 12:15 09/09/18 12:15 09/09/18 12:15 09/09/18 12:15 09/09/18 12:15 - Laboratory Laboratory results interpreted by me: 09/09/18 09/09/18 09/09/18 13:05 14:00 14:00 WBC 3.8 L RDW 14.2 H Carbon Dioxide 31 H Creatinine 1.31 H Est GFR (Non-Af Amer) 57 L Glucose 115 H Ur Leukocyte Esterase LARGE H Salicylates < 1.0 L Acetaminophen < 10 L Discharge <CROW ARENAS - Last Filed: 09/09/18 17:07> <VITA WEEKS - Last Filed: 09/10/18 00:59> - Discharge Clinical Impression: Substance abuse, Passive suicidal ideations, passive homicidal ideation Condition: Stable Disposition: HOME, SELF-CARE Additional Instructions: You have been evaluated by both medical and behavioral health teams and have been deemed appropriate for discharge. You have been been provided economic resource to include fci information and detox resources. Please follow up with your outpatient mental health, [facility]. COCAINE ABUSE: Cocaine causes many dangerous medical problems. Problems can occur even with "usual" amounts. Cocaine affects judgement, creating a sense of invulnerability. Cocaine users often make bad decisions that seem "great" at the time. Most cocaine users eventually will be hurt by bad job performance, damaged personal relations, crime, and unsafe sexual practices. Toxic effects of cocaine can include seizures, hallucinations, delusions, high blood pressure, heart damage, or sudden . There's always the risk of a "bad batch." But heart attacks, brain hemorrhages, or cardiac arrest can occur unpredictably even with "normal" use. Injection of cocaine is risky for abscesses, endocarditis (heart infection), pneumonia, and AIDS. Withdrawal from cocaine often causes anxiety and drug cravings. Some users become paranoid and psychotic. Many treatment programs are available, but you must make the decision to quit. Medication can be prescribed to control the symptoms of cocaine toxicity (beta blockers or benzodiazepines). Withdrawal symptoms may require tranquilizers. DEPRESSION: Your evaluation reveals that you have mental depression. While symptoms may be vague, they often include disturbance of sleep, fatigue, loss of appetite, and general loss of interest in life. While depression may be a side effect of drugs, or a reaction to a major change in your life, many cases have no known cause. If depression is acute, and related to a major loss in your life, you can expect it to clear completely with time. If you have been depressed a long time, are prone to repeated bouts of depression or low mood, or have been thi nking of suicide, get help. Depression can be treated with anti-depressant medication and counselling. Long-term depression will often take a few weeks to clear, even with appropriate medication. Follow-up care is important. SUICIDAL IDEATION: Suicidal ideation is a common medical term for thoughts about suicide, which may be as detailed as a formulated plan, without the suicidal act itself. Although most people who undergo suicidal ideation do not commit suicide, some go on to make suicide attempts. The range of suicidal ideation varies greatly from fleeting to detailed planning, role playing, and unsuccessful attempts. While thoughts about suicide are common, most people do not carry out serious actions to commit suicide. Based upon your evaluation and discussion with you, we do not believe you are currently at risk to act upon your thoughts of suicide. You have agreed to return to the Emergency Department, at any time, if you feel inclined to act upon your suicidal thoughts. FOLLOW-UP CARE: If you have been referred to a physician for follow-up care, call the physicians office for an appointment as you were instructed or within the next two days. If you experience worsening or a significant change in your symptoms, notify the physician immediately or return to the Emergency Department at any time for re-evaluation. Referrals: [facility] [Outside] - Follow up as needed
--- NOTE | 2018-09-09 16:23 | EKG REPORT ---
SEVERITY:- NORMAL ECG - SINUS RHYTHM : Confirmed by: Spencer Ballesteros MD 09-Sep-2018 16:21:50
== END 2018-09-09 17:20 | disposition home or self-care (01) ==
LOC: ER 12:09
DX: R45.851 Suicidal ideations (principal); R45.850 Homicidal ideations; F14.90 Cocaine use, unspecified, uncomplicated; F19.10 Other psychoactive substance abuse, uncomplicated; F17.210 Nicotine dependence, cigarettes, uncomplicated; I10 Essential (primary) hypertension; E11.9 Type 2 diabetes mellitus without complications
CPT/HCPCS: 36415; 80053; 80307; 81001; 85025; 93005; 93010; 99285; 99406

== ENCOUNTER 2018-11-23 01:41 | Emergency (ER) | payer SELFPAY ==
[2018-11-23 03:11] LABS: ABSOLUTE LYMPHOCYTES (AUTO) 1.9 10^3/uL (0.5-4.7); ABSOLUTE MONOCYTES (AUTO) 0.6 10^3/uL (0.1-1.4); ABSOLUTE NEUT (AUTO) 1.7 10^3/uL (1.7-8.2); BASOPHILS % (AUTO) 0.8 % (0-2); EOSINOPHILS % (AUTO) 0.8 % (0-6); HEMATOCRIT 42.1 % (37.9-51.0); HEMOGLOBIN 14.5 g/dL (13.5-17.0); LYMPHOCYTES % (AUTO) 45.2 % (13-45); MEAN CORPUSCULAR HEMOGLOBIN 30.4 pg (27.0-33.4); MEAN CORPUSCULAR HGB CONC 34.5 g/dL (32.0-36.0); MEAN CORPUSCULAR VOLUME 88 fl (80-97); MONOCYTES % (AUTO) 13.1 % (3-13); PLATELET COUNT 285 10^3/uL (150-450); RED BLOOD COUNT 4.77 10^6/uL (4.35-5.55); SEGMENTED NEUTROPHILS % (AUTO) 40.1 % (42-78); TOTAL CELLS COUNTED % (AUTO) 100 %; WHITE BLOOD COUNT 4.2 10^3/uL (4.0-10.5)
--- NOTE | 2018-11-23 03:13 | ER Document Report ---
ED Psych Disorder / Suicide - General Chief Complaint: Suicidal Ideation Stated Complaint: SUICIDAL IDEATION Time Seen by Provider: 11/23/18 02:49 Notes: Patient is a 57-year-old male that comes emergency department for chief complaint of alcohol intoxication, homicidal statements and suicidal ideations. He comes by EMS, his reportedly called EMS. Patient does admit that he started drinking, became intoxicated, "started to talk" and he admits that he "said threatening things to his family" including that he was going to kill them. At this time he denies homicidal ideations but he states that he is thinking about suicide because "that I would not have to deal with all this anymore". He does not have a specific plan. He admits to being suicidal in the past. He states that he just feels like he is completely ignored, he states he could stay in bed for 3 weeks and no one would say anything, he states he left once for 5 days and came back and no one said anything and nothing changed. He states he just feels like he does not matter. Past medical history includes bipolar/depression (on Seroquel), hypertension, chronic pain on pain management. He admits to using cocaine 2 weeks ago but states he has not used anything si nce. He denies having alcohol withdrawals. TRAVEL OUTSIDE OF THE [place] IN LAST 30 DAYS: No - Related Data Allergies/Adverse Reactions: chlorpheniramine [From Theraflu Cold & Sore Throat] Allergy (Unknown, Verified 09/09/18 12:10) pseudoephedrine HCl [From Theraflu Cold & Sore Throat] Allergy (Unknown, Verified 09/09/18 12:10) ketorolac tromethamine [From Toradol] Allergy (Verified 09/09/18 12:10) Hives Shellfish * [Shellfish] Allergy (Verified 09/09/18 12:10) swelling tramadol [Tramadol] Allergy (Verified 09/09/18 12:10) Hives tramadol HCl [From Ultram] Allergy (Verified 09/09/18 12:10) Hives Past Medical History - General Information source: Patient - Social History Smoking Status: Current Every Day Smoker Chew tobacco use (# tins/day): No Frequency of alcohol use: Heavy Drug Abuse: Cocaine Lives with: Family Family History: Arthritis, CAD, CVA, Hyperlipidemia, Hypertension Patient has suicidal ideation: Yes Patient has homicidal ideation: No - Past Medical History Cardiac Medical History: Reports: Hx Hypercholesterolemia, Hx Hypertension Denies: Hx Heart Attack Pulmonary Medical History: Reports: Hx Bronchitis Denies: Hx Asthma, Hx COPD, Hx Pneumonia, Hx Tuberculosis Neurological Medical History: Denies: Hx Cerebrovascular Accident, Hx Seizures Endocrine Medical History: Reports: Hx Diabetes Mellitus Type 2 - pre-diabetic Renal/ Medical History: Denies: Hx Peritoneal Dialysis GI Medical History: Reports: Hx Gastroesophageal Reflux Disease, Hx Hiatal Hernia, Hx Ulcer, Hx Colonoscopy, Hx Endoscopy Musculoskeletal Medical History: Reports Hx Arthritis, Reports Hx Musculoskeletal Trauma - ACL tear Psychiatric Medical History: Reports: Hx Bipolar Disorder, Hx Depression Past Surgical History: Reports: Hx Inguinal Hernia - LIH REPAIR, Hx Orthopedic Surgery - rotator cuff. Denies: Hx Pacemaker - Immunizations Immunizations up to date: Yes Hx Diphtheria, Pertussis, Tetanus Vaccination: Yes Hx Pneumococcal Vaccination: 02/24/00 Review of Systems - Review of Systems Constitutional: See HPI EENT: No symptoms reported Cardiovascular: No symptoms reported Respiratory: No symptoms reported Gastrointestinal: No symptoms reported Genitourinary: No symptoms reported Male Genitourinary: No symptoms reported Musculoskeletal: No symptoms reported Skin: No symptoms reported Hematologic/Lymphatic: No symptoms reported Neurological/Psychological: See HPI Physical Exam - Vital signs Vitals: Temp Pulse Resp BP Pulse Ox 97.6 F 111 H 19 143/109 H 96 11/23/18 01:46 11/23/18 01:46 11/23/18 01:46 11/23/18 01:46 11/23/18 01:46 - Notes Notes: GENERAL: Patient is loud, talkative, occasionally slurring some words, appears somewhat intoxicated HEAD: Normocephalic, atraumatic. EYES: Pupils equal, round, and reactive to light. Extraocular movements intact. ENT: Oral mucosa moist, tongue midline. Oropharynx unremarkable. Airway patent. NECK: Full range of motion. Supple. Trachea midline. LUNGS: Clear to auscultation bilaterally, no wheezes, rales, or rhonchi. No respiratory distress. HEART: Borderline tachycardic, normal rhythm, no murmur ABDOMEN: Soft, non-tender. Bowel sounds present in all 4 quadrants. GENITOURINARY: Deferred EXTREMITIES: Moves all 4 extremities spontaneously. No edema, normal radial and dorsalis pedis pulses bilaterally. No cyanosis. BACK: no cervical, thoracic, lumbar midline tenderness. No saddle anesthesia, no rmal distal neurovascular exam. NEUROLOGICAL: Alert and oriented x3. Normal speech. Cranial nerves II through XII grossly intact. PSYCH: Expansive mood SKIN: Warm, dry, normal turgor. No rashes or lesions noted. Course - Re-evaluation Re-evalutation: Patient appears intoxicated, borderline tachycardic, otherwise well-appearing. CBC unremarkable, chemistry nonspecific, alcohol is 210, cocaine is positive but patient states this was 2 weeks ago. He told me about this ahead of time. EKG unremarkable. Patient does not have chest pain or any current symptoms. Urinalysis suggest infection. I asked patient about this, he states he actually does get urinary tract infections occasionally and he has had frequency of urination, therefore he was given a dose of Keflex and sent a culture was placed. Patient has been placed on IVC paperwork because of his homicidal statements and suicidal ideations which patient again confirmed with me. Patient was given IV fluids, after this vital signs much improved, patient asymptomatic on reevaluation, appears to be sobering up. Patient is medically cleared. Patient has been discussed with Dr. Silva. - Vital Signs Vital signs: Temp Pulse Resp BP Pulse Ox 97.9 F 101 H 19 143/81 H 96 11/23/18 08:00 11/23/18 08:00 11/23/18 01:46 11/23/18 08:00 11/23/18 08:00 - Laboratory Result Diagrams: 11/23/18 03:01 11/23/18 03:01 Laboratory results interpreted by me: 11/23/18 11/23/18 11/23/18 03:01 03:01 03:01 RDW 15.0 H Lymph % (Auto) 45.2 H Toombs % (Auto) 13.1 H Seg Neutrophils % 40.1 L Glucose 115 H Total Protein 8.7 H Urine Blood SMALL H Ur Leukocyte Esterase LARGE H Salicylates < 1.0 L Acetaminophen < 10 L - EKG Interpretation by Me Additional EKG results interpreted by me: EKG shows sinus tachycardia at a rate of 107, QTC of 433, no T wave inversions or ST segment changes in consecutive leads. Discharge - Discharge Clinical Impression: Homicidal behavior, Suicidal ideations Alcohol intoxication Qualifiers: Complication of substance-induced condition: with unspecified complication Qualified Code(s): F10.929 - Alcohol use, unspecified with intoxication, unspecified Condition: Stable Disposition: PSYCH HOSP/UNIT
[2018-11-23 03:17] LABS: APPEARANCE,URINE SLIGHTLY-CLOUDY; BILIRUBIN,URINE NEGATIVE (NEGATIVE); COLOR,URINE YELLOW; GLUCOSE, URINE NEGATIVE (NEGATIVE); KETONES,URINE NEGATIVE (NEGATIVE); LEUKOCYTE ESTERASE,URINE LARGE (NEGATIVE); NITRITE,URINE NEGATIVE (NEGATIVE); PROTEIN,URINE NEGATIVE (NEGATIVE); URINE SPECIFIC GRAVITY 1.006; UROBILINOGEN,URINE NEGATIVE mg/dL (<2.0)
[2018-11-23 03:31] LABS: URINE AMPHETAMINES SCREEN NEGATIVE; URINE BARBITURATES SCREEN NEGATIVE; URINE BENZODIAZEPINES SCREEN NEGATIVE; URINE COCAINE SCREEN UNCONFIRMED POSITIVE; URINE MARIJUANA (THC) SCREEN NEGATIVE; URINE METHADONE SCREEN NEGATIVE; URINE PHENCYCLIDINE SCREEN NEGATIVE
[2018-11-23 03:33] LABS: ALBUMIN 4.8 g/dL (3.5-5.0); ALCOHOL 210 mg/dL (NONE DETECTED); ALKALINE PHOSPHATASE 73 U/L (38-126); ANION GAP 13 (5-19); ASPARTATE AMINO TRANSFERASE 54 U/L (17-59); BILIRUBIN,DIRECT 0.2 mg/dL (0.0-0.4); BILIRUBIN,TOTAL 0.4 mg/dL (0.2-1.3); BLOOD UREA NITROGEN 9 mg/dL (7-20); CALCIUM 10.1 mg/dL (8.4-10.2); CARBON DIOXIDE 26 mmol/L (22-30); CHLORIDE 103 mmol/L (98-107); GLUCOSE 115 mg/dL (75-110); POTASSIUM 4.5 mmol/L (3.6-5.0); TOTAL PROTEIN 8.7 g/dL (6.3-8.2)
[2018-11-23 03:35] LABS: ACETAMINOPHEN < 10 ug/mL (10-30); SALICYLATE < 1.0 mg/dL (2.0-20.0)
[2018-11-23] MEDS ORDERED: CEPHALEXIN 500 MG CAPSULE PO ONE (06:04)
[2018-11-23] MEDS ORDERED: NORMAL SALINE 1000 ML 1,000 ML IV ONE (06:20)
[2018-11-23] MEDS ORDERED: FAMOTIDINE 20 MG TABLET PO ONE (06:32)
--- NOTE | 2018-11-23 09:25 | ER Document Report ---
Doctor's Note Notes: 11/23/18 09:24 PHYSICAL EXAMINATION: GENERAL: Appears well, healthy, well-nourished, no acute distress. HEAD: Normocephalic, atraumatic. LUNGS: Equal breath sounds bilaterally and clear to auscultation. No wheezes rales or rhonchi. CARDIOVASCULAR: S1-S2, regular rate, regular rhythm. Radial pulses 2+, normal. ABDOMEN: Normoactive bowel sounds. Soft, nontender, no guarding, no rebound tenderness, and no masses palpated. NEUROLOGICAL: Moves all extremities upon command. Strength 5/5 in all extremities. PSYCH: Normal mood, normal affect. Patient states that he feels better this morning. Denies any suicidal or homicidal ideation. He is being referred to [facility]. He will also be started on Keflex for his urinary tract infection. He received a dose this morning. Follow-up precautions were given. Verbal discharge instructions were given to the patient. They verbalized understanding. They are stable for discharge.
--- NOTE | 2018-11-23 09:44 | PSYCHOLOGICAL NOTE ---
Psych Note - Psych Note Date seen by psych provider: 11/23/18 Psych Note: Presenting Problem: Alcohol intoxication, UDS positive for cocaine, HX of alcohol and cocaine use, SI, HI. Diagnosis: Polysubstance Use (and intoxication) Alcohol Use Disorder, Severe Cocaine Use Disorder, Severe Depressive Disorder Impression/Plan: Patient is cleared from acute psychiatric services. Recommendation to rescind 24 Hour IVC Petition. he denied current SI/HI and stated he wants help. He gave verbal consent to link and make referral to the [facility] who has accepted him and expect him at their facility by [address]. Consulted with Dr[address] Suresh regarding the management and care of patient. ED Physician in agreement with recommendations.
[2018-11-23 10:28] VITALS: BP 144/90
--- NOTE | 2018-11-23 20:56 | EKG REPORT ---
SEVERITY:- OTHERWISE NORMAL ECG - SINUS TACHYCARDIA : Confirmed by: Karla Wheeler MD 23-Nov-2018 20:55:47
== END 2018-11-23 10:15 | disposition home or self-care (01) ==
LOC: ER 01:41
DX: F10.129 Alcohol abuse with intoxication, unspecified (principal); F31.9 Bipolar disorder, unspecified; Z79.899 Other long term (current) drug therapy; R45.851 Suicidal ideations; R45.850 Homicidal ideations; F14.10 Cocaine abuse, uncomplicated; I10 Essential (primary) hypertension; G89.29 Other chronic pain; F17.200 Nicotine dependence, unspecified, uncomplicated; Z88.8 Allergy status to other drugs, medicaments and biological substances; Z91.013 Allergy to seafood; Z88.5 Allergy status to narcotic agent
CPT/HCPCS: 93005; 36415; 80307 ×4; 83690; 85025; 80053; 81001; 93010; J7030; 87086

== ENCOUNTER 2019-01-23 12:17 | Emergency (ER) | payer SELFPAY ==
[2019-01-23] MEDS ORDERED: LIDOCAINE 5% (700 MG) TRANSDERMAL ADH..PATCH TP ONE (12:27)
[2019-01-23] MEDS ORDERED: METHOCARBAMOL 500 MG TABLET PO ONE (12:27)
[2019-01-23] MEDS ORDERED: ACETAMINOPHEN 325 MG TABLET PO ONE (12:27)
--- NOTE | 2019-01-23 12:29 | ER Document Report ---
HPI - HPI Patient complains to provider of: Back pain Time Seen by Provider: 01/23/19 12:23 Onset: Last week Onset/Duration: Persistent Quality of pain: Achy Pain Level: 4 Context: Patient states that he has had right flank pain and right back pain that radiates to the right lower extremity for the past week. Patient states he was doing a lot of heavy lifting and moving at work and this aggravated his symptoms. Patient states he has had pain like this in the past. Patient denies any fever nausea or vomiting. Patient denies any numbness. Associated Symptoms: denies: Nonproductive cough, Productive cough, Fever, Nausea, Vomiting Exacerbated by: Movement Relieved by: Denies Similar symptoms previously: Yes Recently seen / treated by doctor: No - ROS ROS below otherwise negative: Yes Systems Reviewed and Negative: Yes All other systems reviewed and negative - CONSTITUTIONAL Constitutional: DENIES: Fever, Chills - NEURO Neurology: DENIES: Weakness - RESPIRATORY Respiratory: DENIES: Trouble Breathing, Coughing - GASTROINTESTINAL Gastrointestinal: DENIES: Abdominal Pain, Nausea, Patient vomiting - URINARY Urinary: DENIES: Dysuria, Urgency - MUSCULOSKELETAL Musculoskeletal: REPORTS: Extremity pain, Back Pain. DENIES: Neck Pain - DERM Skin Color: Normal Skin Problems: None Past Medical History - General Information source: Patient - Social History Smoking Status: Current Every Day Smoker Chew tobacco use (# tins/day): No Frequency of alcohol use: None Drug Abuse: None Occupation: Echo Technician Lives with: Spouse/Significant other Family History: Arthritis, CAD, CVA, Hyperlipidemia, Hypertension Patient has suicidal ideation: No Patient has homicidal ideation: No - Past Medical History Cardiac Medical History: Reports: Hx Hypercholesterolemia, Hx Hypertension Pulmonary Medical History: Reports: Hx Bronchitis Endocrine Medical History: Reports: Hx Diabetes Mellitus Type 2 - pre-diabetic Renal/ Medical History: Denies: Hx Peritoneal Dialysis GI Medical History: Reports: Hx Gastroesophageal Reflux Disease, Hx Hiatal Hernia, Hx Ulcer, Hx Colonoscopy, Hx Endoscopy Musculoskeletal Medical History: Reports Hx Arthritis, Reports Hx Musculoskeletal Trauma - ACL tear Psychiatric Medical History: Reports: Hx Bipolar Disorder, Hx Depression Past Surgical History: Reports: Hx Inguinal Hernia - LIH REPAIR, Hx Orthopedic Surgery - rotator cuff - Immunizations Immunizations up to date: Yes Hx Diphtheria, Pertussis, Tetanus Vaccination: Yes Hx Pneumococcal Vaccination: 02/24/00 Vertical Provider Document - CONSTITUTIONAL Agree With Documented VS: Yes Exam Limitations: No Limitations General Appearance: WD/WN, No Apparent Distress Notes: PHYSICAL EXAMINATION: GENERAL: Well-appearing, well-nourished and in no acute distress. HEAD: Atraumatic, normocephalic. EYES: sclera clear, anicteric, conjunctiva are normal. ENT: nares patent, Moist mucous membranes. NECK: Normal range of motion, supple no lymphadenopathy LUNGS: respirations unlabored HEART: Regular rate and rhythm without murmurs EXTREMITIES: Normal range of motion, no pitting or edema. No cyanosis. Gait normal, pt ambulates without difficulty BACK: Right lower lumbar tenderness, right SI joint tenderness, no midline tenderness, no deformities or step-offs. Right CVA tenderness. NEUROLOGICAL: Cranial nerves grossly intact. Normal speech, normal gait. No saddle anesthesia. PSYCH: Normal mood, normal affect. SKIN: Warm, Dry, normal turgor, no rashes or lesions noted. - INFECTION CONTROL TRAVEL OUTSIDE OF THE [place] IN LAST 30 DAYS: No Course - Re-evaluation Re-evalutation: 01/23/19 14:08 Patient with right flank tenderness and right lower back pain that radiates to right lower extremity. Patient does have leukocyte esterase noted on analysis. We will culture urine and start patient on doxycycline and treat for sciatica at this time. The patient presents with low back pain without signs of spinal cord compression, cauda equina syndrome, infection, aneurysm, or other serious etiology. The patient is neurologically intact. Given the extremely risk of these diagnoses further testing and evaluation for these possibilities does not appear to be indicated at this time. Patient has been instructed to return if the symptoms worsen or change in any way. - Laboratory Result Diagrams: 01/23/19 13:10 01/23/19 13:10 Laboratory results interpreted by me: 01/23/19 14:08 Labs- Entire Visit 01/23/19 01/23/19 01/23/19 12:33 13:10 13:10 WBC 4.6 RBC 4.44 Hgb 13.9 Hct 39.8 MCV 90 MCH 31.3 MCHC 34.9 RDW 14.0 Plt Count 208 Lymph % (Auto) 28.2 [place] % (Auto) 9.6 Eos % (Auto) 2.7 Baso % (Auto) 1.1 Absolute Neuts (auto) 2.7 Absolute Lymphs (auto) 1.3 Absolute Monos (auto) 0.4 Absolute Eos (auto) 0.1 Absolute Basos (auto) 0.1 Seg Neutrophils % 58.4 Sodium 139.9 Potassium 4.1 Chloride 103 Carbon Dioxide 25 Anion Gap 12 BUN 20 Creatinine 1.18 Est GFR ( Amer) > 60 Est GFR (MDRD) Non-Af > 60 Glucose 129 H Calcium 9.6 Urine Color YELLOW Urine Appearance SLIGHTLY-CLOUDY Urine pH 5.0 Ur Specific Harper 1.017 Urine Protein NEGATIVE Urine Glucose (UA) NEGATIVE Urine Ketones NEGATIVE Urine Blood NEGATIVE Urine Nitrite NEGATIVE Urine Bilirubin NEGATIVE Urine Urobilinogen 2.0 H Ur Leukocyte Esterase MODERATE H Urine WBC (Auto) 13 Urine RBC (Auto) 1 Squamous Epi Cells Auto 3 Urine Mucus (Auto) RARE Urine Ascorbic Acid NEGATIVE - Diagnostic Test Radiology reviewed: Reports reviewed Discharge - Discharge Clinical Impression: Right flank pain Sciatica Qualifiers: Laterality: right Qualified Code(s): M54.31 - Sciatica, right side Low back pain Qualifiers: Chronicity: chronic Back pain laterality: right Sciatica presence: with sciatica Sciatica laterality: sciatica of right side Qualified Code(s): M54.41 - Lumbago with sciatica, right side UTI (urinary tract infection) Qualifiers: Urinary tract infection type: site unspecified Hematuria presence: without hematuria Qualified Code(s): N39.0 - Urinary tract infection, site not specified Condition: Stable Disposition: HOME, SELF-CARE Instructions: Doxycycline ([facility]), Flank Pain ([facility]), Ice Packs ([facility]), Sciatica ([facility]), Urinary Tract Infection ([facility]) Additional Instructions: Return immediately for any new or worsening symptoms Followup with your primary care provider, call tomorrow to make a followup appointment Urine culture is pending, we will call if you need any different treatment Prescriptions: Prednisone [Deltasone 20 mg Tablet] 3 tab PO DAILY 5 Days tablet Doxycycline Hyclate 100 mg PO BID #14 capsule Lidocaine [Lidoderm 5% (700 mg) Transdermal Patch] 1 patch TP DAILY PRN #10 adh..patch PRN Reason: Methocarbamol [Robaxin 500 Mg Tablet] 500 mg PO QID PRN #20 tablet PRN Reason: Forms: Return to Work Referrals: [facility] [Provider Group] - Follow up as needed [facility] [Provider Group] - Follow up as needed
[2019-01-23 12:50] LABS: APPEARANCE,URINE SLIGHTLY-CLOUDY; BILIRUBIN,URINE NEGATIVE (NEGATIVE); COLOR,URINE YELLOW; GLUCOSE, URINE NEGATIVE (NEGATIVE); KETONES,URINE NEGATIVE (NEGATIVE); LEUKOCYTE ESTERASE,URINE MODERATE (NEGATIVE); NITRITE,URINE NEGATIVE (NEGATIVE); PROTEIN,URINE NEGATIVE (NEGATIVE); URINE SPECIFIC GRAVITY 1.017
[2019-01-23 13:21] LABS: ABSOLUTE BASOPHILS # (AUTO) 0.1 10^3/uL (0.0-0.2); ABSOLUTE EOSINOPHILS # (AUTO) 0.1 10^3/uL (0.0-0.6); ABSOLUTE LYMPHOCYTES (AUTO) 1.3 10^3/uL (0.5-4.7); ABSOLUTE MONOCYTES (AUTO) 0.4 10^3/uL (0.1-1.4); ABSOLUTE NEUT (AUTO) 2.7 10^3/uL (1.7-8.2); BASOPHILS % (AUTO) 1.1 % (0-2); EOSINOPHILS % (AUTO) 2.7 % (0-6); HEMATOCRIT 39.8 % (37.9-51.0); HEMOGLOBIN 13.9 g/dL (13.5-17.0); LYMPHOCYTES % (AUTO) 28.2 % (13-45); MEAN CORPUSCULAR HEMOGLOBIN 31.3 pg (27.0-33.4); MEAN CORPUSCULAR HGB CONC 34.9 g/dL (32.0-36.0); MEAN CORPUSCULAR VOLUME 90 fl (80-97); MONOCYTES % (AUTO) 9.6 % (3-13); PLATELET COUNT 208 10^3/uL (150-450); RED BLOOD COUNT 4.44 10^6/uL (4.35-5.55); SEGMENTED NEUTROPHILS % (AUTO) 58.4 % (42-78); TOTAL CELLS COUNTED % (AUTO) 100 %; WHITE BLOOD COUNT 4.6 10^3/uL (4.0-10.5)
[2019-01-23 13:40] LABS: ANION GAP 12 (5-19); BLOOD UREA NITROGEN 20 mg/dL (7-20); CALCIUM 9.6 mg/dL (8.4-10.2); CARBON DIOXIDE 25 mmol/L (22-30); CHLORIDE 103 mmol/L (98-107); GLUCOSE 129 mg/dL (75-110); POTASSIUM 4.1 mmol/L (3.6-5.0)
--- NOTE | 2019-01-23 13:57 | RADIOLOGY REPORT (SQ) ---
EXAM DESCRIPTION: CT ABD/PELVIS NO ORAL OR IV COMPLETED DATE/TIME: 01/23/2019 1:19 pm REASON FOR STUDY: r flank pain COMPARISON: 05/31/2015. TECHNIQUE: CT scan of the abdomen and pelvis performed without intravenous or oral contrast. Images reviewed with lung, soft tissue, and bone windows. Reconstructed coronal and sagittal MPR images revi ewed. All images stored on PACS. All CT scanners at this facility use dose modulation, iterative reconstruction, and/or weight based d osing when appropriate to reduce radiation dose to as low as reasonably achievable (ALARA). [facility]: Dose Right [facility]: CareDose [facility]: Dose Right [facility]: Teradose 4D [facility]: Smart Define My Style RADIATION DOSE: CT Rad equipment meets quality standard of care and radiation dose reduction techniq ues were employed. CTDIvol: 18.4 mGy. DLP: 1052 mGy-cm.mGy. LIMITATIONS: None. FINDINGS: LOWER CHEST: No significant findings. No nodules or infiltrates. NON-CONTRASTED LIVER, SPLEEN, ADRENALS: Evaluation limited by lack of IV contrast. No identified sign ificant masses. PANCREAS: No masses. No peripancreatic inflammatory changes. GALLBLADDER: No identified stones by CT criteria. No inflammatory changes to suggest cholecystitis. RIGHT KIDNEY AND URETER: No suspicious masses. Assessment limited by lack of IV contrast. No signif icant calcifications. No hydronephrosis or hydroureter. LEFT KIDNEY AND URETER: No suspicious masses. Assessment limited by lack of IV contrast. No signifi cant calcifications. No hydronephrosis or hydroureter. AORTA AND RETROPERITONEUM: No aneurysm. No retroperitoneal masses or adenopathy. BOWEL AND PERITONEAL CAVITY: No obvious masses or inflammatory changes. No free fluid. APPENDIX: Normal. PELVIS, BLADDER, AND ABDOMINAL WALL:No abnormal masses. No free fluid. Bladder normal. BONES: No significant findings. OTHER: No other significant finding. IMPRESSION: NO SIGNIFICANT OR ACUTE PROCESS IN THE ABDOMEN OR PELVIS. COMMENT: Quality ID # [id number]: Final reports with documentation of one or more dose reduction techniques (e.g., Automated exposure control, adjustment of the mA and/or kV according to patient size, use of iterative reconstruction technique) TECHNICAL DOCUMENTATION: JOB ID: [id number] [employer]- All Rights Reserved Reading location - IP/workstation name: [email or web address]
[2019-01-23 14:26] VITALS: BP 147/92
== END 2019-01-23 14:27 | disposition home or self-care (01) ==
LOC: ER 12:17
DX: M54.41 Lumbago with sciatica, right side (principal); N39.0 Urinary tract infection, site not specified; R10.9 Unspecified abdominal pain; F17.200 Nicotine dependence, unspecified, uncomplicated; I10 Essential (primary) hypertension
CPT/HCPCS: 36415; 74176; 80048; 81001; 85025; 87086; 99284

== ENCOUNTER 2019-02-17 07:45 | Emergency (ER) | payer SELFPAY ==
--- NOTE | 2019-02-17 08:45 | RADIOLOGY REPORT (SQ) ---
EXAM DESCRIPTION: CHEST 2 VIEWS COMPLETED DATE/TIME: 02/17/2019 8:37 am REASON FOR STUDY: SOB COMPARISON: 02/08/2018 EXAM PARAMETERS: NUMBER OF VIEWS: two views TECHNIQUE: Digital Frontal and Lateral radiographic views of the chest acquired. RADIATION DOSE: NA LIMITATIONS: none FINDINGS: LUNGS AND PLEURA: No opacities, masses or pneumothorax. No pleural effusion. MEDIASTINUM AND HILAR STRUCTURES: No masses or contour abnormalities. HEART AND VASCULAR STRUCTURES: Heart normal size. No evidence for failure. BONES: No acute findings. HARDWARE: None in the chest. OTHER: No other significant finding. IMPRESSION: No acute abnormality of the lungs. No focal airspace opacity. TECHNICAL DOCUMENTATION: JOB ID: [id number] [employer]- All Rights Reserved Reading location - IP/workstation name: [email or web address]
--- NOTE | 2019-02-17 10:57 | ER Document Report ---
ED Respiratory Problem - General Chief Complaint: Breathing Difficulty Stated Complaint: TROUBLE BREATHING Time Seen by Provider: 02/17/19 09:44 Notes: 58-year-old male presents with cough and congestion. That is ongoing for 1 month. Patient states that he has some difficulty breathing when he is coughing. Patient denies any history of asthma or COPD. Patient denies any fever, ear pain, sore throat, chest pain, abdominal pain, nausea/vomiting. Patient also has a history of hypertension and is on lisinopril 40 mg p.o. once daily however has been out of his medications for 2 weeks. Patient has been taking Sudafed grod-lpd-eparflf with little relief. TRAVEL OUTSIDE OF THE [place] IN LAST 30 DAYS: No - Related Data Allergies/Adverse Reactions: chlorpheniramine [From Theraflu Cold & Sore Throat] Allergy (Unknown, Verified 02/17/19 08:16) pseudoephedrine HCl [From Theraflu Cold & Sore Throat] Allergy (Unknown, Verified 02/17/19 08:16) ketorolac tromethamine [From Toradol] Allergy (Verified 02/17/19 08:16) Hives Shellfish * [Shellfish] Allergy (Verified 02/17/19 08:16) swelling tramadol [Tramadol] Allergy (Verified 02/17/19 08:16) Hives tramadol HCl [From Ultram] Allergy (Verified 02/17/19 08:16) Hives Past Medical History - Social History Smoking Status: Current Every Day Smoker Chew tobacco use (# tins/day): No Frequency of alcohol use: None Drug Abuse: None Family History: Arthritis, CAD, CVA, Hyperlipidemia, Hypertension Patient has suicidal ideation: No Patient has homicidal ideation: No - Past Medical History Cardiac Medical History: Reports: Hx Hypercholesterolemia, Hx Hypertension Denies: Hx Heart Attack Pulmonary Medical History: Reports: Hx Bronchitis Denies: Hx Asthma, Hx COPD, Hx Pneumonia, Hx Tuberculosis Neurological Medical History: Denies: Hx Cerebrovascular Accident, Hx Seizures Endocrine Medical History: Reports: Hx Diabetes Mellitus Type 2 - pre-diabetic Renal/ Medical History: Denies: Hx Peritoneal Dialysis GI Medical History: Reports: Hx Gastroesophageal Reflux Disease, Hx Hiatal Hernia, Hx Ulcer, Hx Colonoscopy, Hx Endoscopy Musculoskeletal Medical History: Reports Hx Arthritis, Reports Hx Musculoskele cathleen Trauma - ACL tear Psychiatric Medical History: Reports: Hx Bipolar Disorder, Hx Depression Past Surgical History: Reports: Hx Inguinal Hernia - LIH REPAIR, Hx Orthopedic Surgery - rotator cuff. Denies: Hx Pacemaker - Immunizations Immunizations up to date: Yes Hx Diphtheria, Pertussis, Tetanus Vaccination: Yes Hx Pneumococcal Vaccination: 02/24/00 Review of Systems - Review of Systems Notes: Constitutional: Negative for fever. HENT: Positive for nasal congestion. Negative for sore throat. Eyes: Negative for visual changes. Cardiovascular: Negative for chest pain. Respiratory: Positive for shortness of breath when coughing and productive cough with mucus. Gastrointestinal: Negative for abdominal pain, vomiting or diarrhea. Genitourinary: Negative for dysuria. Musculoskeletal: Negative for back pain. Skin: Negative for rash. Neurological: Negative for headaches, weakness or numbness. 10 point ROS negative except as marked above and in HPI. Physical Exam - Vital signs Vitals: Temp Pulse Resp BP Pulse Ox 97.6 F 101 H 20 143/101 H 96 02/17/19 07:53 02/17/19 07:53 02/17/19 07:53 02/17/19 07:53 02/17/19 07:53 - Notes Notes: GENERAL: Well-appearing, well-nourished and in no acute distress. HEAD: Atraumatic, normocephalic. EYES: Extraocular movements intact, sclera anicteric, conjunctiva are normal. ENT: TMs normal, nasal congestion, nares patent, oropharynx clear without exudates. Uvula midline without edema. No PLYWOOD MATCHER. No trismus. No muffled voice. Moist mucous membranes. NECK: Normal range of motion, supple without lymphadenopathy or JVD. LUNGS: Breath sounds clear to auscultation bilaterally and equal. No wheezes rales or rhonchi. HEART: Regular rate and rhythm without murmurs, rubs or gallops. ABDOMEN: Soft, nontender. No guarding, no rebound. No masses appreciated. EXTREMITIES: Normal range of motion, no pitting or edema. No clubbing or cyanosis. NEUROLOGICAL: Cranial nerves II through XII grossly intact. Normal speech, normal gait. PSYCH: Normal mood, normal affect. SKIN: Warm, Dry, normal turgor, no rashes or lesions noted. Course - Re-evaluation Re-evalutation: 02/17/19 58-year-old nontoxic, well-appearing male presents with nasal congesti on and productive cough with mucus. Patient is also out of his blood pressure medications. Patient states he has some difficulty breathing when he has coughing. Patient has no signs of acute respiratory distress. Patient is currently 98% on room air. Patient has no accessory muscle use or tripoding. Lungs clear to auscultation bilaterally. Regular rate and rhythm. Patient is afebrile.. EKG is normal sinus rhythm at 98. Chest x-ray shows no pneumonias and is otherwise unremarkable. Patient given prescriptions for symptomatic relief and refill of his lisinopril 40 mg p.o. once daily. Patient also given referral to clinics for follow-up with PCP. Strict return precautions given. Patient voices understanding and agrees with plan of care. - Vital Signs Vital signs: Temp Pulse Resp BP Pulse Ox 97.6 F 101 H 20 143/101 H 96 02/17/19 07:53 02/17/19 07:53 02/17/19 07:53 02/17/19 07:53 02/17/19 07:53 Discharge - Discharge Clinical Impression: Medicine refill URI (upper respiratory infection) Qualifiers: URI type: unspecified viral URI Qualified Code(s): J06.9 - Acute upper respiratory infection, unspecified Hypertension Qualifiers: Hypertension type: unspecified Qualified Code(s): I10 - Essential (primary) hypertension Condition: Stable Disposition: HOME, SELF-CARE Instructions: Upper Respiratory Illness ([facility]) Additional Instructions: Please take the medications as prescribed. Please take your blood pressure medications as prescribed. Please follow-up with 1 of the clinics listed in 3 to 5 days. Return immediately to ER if you start having any worsening symptoms, including fever, coughing up blood, nausea/vomiting, chest pain, worsening shortness of breath, abdominal pain, or any other symptoms that are concerning to you. Prescriptions: Benzonatate [Tessalon Perle 100 mg Capsule] 100 mg PO Q8HP PRN #40 cap PRN Reason: Fexofenadine HCl [Kisha] 180 mg PO DAILY #20 tablet Fluticasone Propionate [Flonase Nasal [place] 50 Mcg/[place] 16 gm] 2 sprays NASL Q12 #1 inhaler Lisinopril [Prinivil 40 mg Tablet] 40 mg PO DAILY #30 tablet Referrals: RAGHAV DANIEL MD [COMMUNITY BASED STAFF] - Follow up in 3-5 days [facility] [Provider Group] - Follow up in 3-5 days
[2019-02-17 11:18] VITALS: BP 119/105
--- NOTE | 2019-02-17 16:26 | EKG REPORT ---
SEVERITY:- NORMAL ECG - SINUS RHYTHM : Confirmed by: Karla Wheeler MD 17-Feb-2019 16:25:15
== END 2019-02-17 11:10 | disposition home or self-care (01) ==
LOC: ER 07:45
DX: J06.9 Acute upper respiratory infection, unspecified (principal); R06.00 Dyspnea, unspecified; F17.200 Nicotine dependence, unspecified, uncomplicated; E78.00 Pure hypercholesterolemia, unspecified; I10 Essential (primary) hypertension; Z88.6 Allergy status to analgesic agent; Z91.013 Allergy to seafood
CPT/HCPCS: 71046; 93005; 93010; 99285

== ENCOUNTER → 2019-03-25 | Outpatient (CLI) | payer OTHER ==
[2019-03-25 11:19] LABS: ABSOLUTE EOSINOPHILS # (AUTO) 0.1 10^3/uL (0.0-0.6); ABSOLUTE LYMPHOCYTES (AUTO) 1.1 10^3/uL (0.5-4.7); ABSOLUTE MONOCYTES (AUTO) 0.4 10^3/uL (0.1-1.4); ABSOLUTE NEUT (AUTO) 1.7 10^3/uL (1.7-8.2); BASOPHILS % (AUTO) 0.6 % (0-2); EOSINOPHILS % (AUTO) 2.8 % (0-6); HEMOGLOBIN 13.6 g/dL (13.5-17.0); LYMPHOCYTES % (AUTO) 33.2 % (13-45); MEAN CORPUSCULAR HEMOGLOBIN 30.3 pg (27.0-33.4); MEAN CORPUSCULAR HGB CONC 34.8 g/dL (32.0-36.0); MEAN CORPUSCULAR VOLUME 87 fl (80-97); MONOCYTES % (AUTO) 11.4 % (3-13); PLATELET COUNT 218 10^3/uL (150-450); RED BLOOD COUNT 4.48 10^6/uL (4.35-5.55); RED CELL DISTRIBUTION WIDTH 13.8 % (11.5-14.0); TOTAL CELLS COUNTED % (AUTO) 100 %; WHITE BLOOD COUNT 3.3 10^3/uL (4.0-10.5)
[2019-03-25 11:42] LABS: ALBUMIN 4.4 g/dL (3.5-5.0); ALKALINE PHOSPHATASE 57 U/L (38-126); ANION GAP 9 (5-19); ASPARTATE AMINO TRANSFERASE 47 U/L (17-59); BILIRUBIN,DIRECT 0.3 mg/dL (0.0-0.4); BILIRUBIN,TOTAL 0.5 mg/dL (0.2-1.3); BLOOD UREA NITROGEN 18 mg/dL (7-20); CALCIUM 9.8 mg/dL (8.4-10.2); CARBON DIOXIDE 31 mmol/L (22-30); CHLORIDE 101 mmol/L (98-107); GLUCOSE 112 mg/dL (75-110); POTASSIUM 4.7 mmol/L (3.6-5.0); TOTAL PROTEIN 7.9 g/dL (6.3-8.2); TRIGLYCERIDES 148 mg/dL (<150)
[2019-03-25 11:53] LABS: DIRECT LDL 127 mg/dL (<100)
--- NOTE | 2019-03-25 12:28 | RADIOLOGY REPORT (SQ) ---
EXAM DESCRIPTION: KNEE BILATERAL 1-2 VIEWS COMPLETED DATE/TIME: 03/25/2019 10:37 am REASON FOR STUDY: UNSPECIFIED OSTEOARTHRITIS, UNSPECIFIED SITE Z00.00 [facility] EXAM W/O ABNORMAL FI M19.90 UNSPECIFIED OSTEOARTHRITIS, UNSPECIFIED SITE COMPARISON: None. NUMBER OF VIEWS: Two views. TECHNIQUE: AP and lateral standing bilateral knees. LIMITATIONS: None. FINDINGS: MINERALIZATION: Normal. RIGHT KNEE BONES: No acute fracture. No worrisome bone lesions. MEDIAL COMPARTMENT: No significant osteophytes. No joint space narrowing. No chondrocalcinosis. LATERAL COMPARTMENT: No significant osteophytes. No joint space narrowing. No chondrocalcinosis. PATELLOFEMORAL COMPARTMENT: No significant osteophytes. No joint space narrowing. No chondrocalc inosis. LEFT KNEE BONES: No acute fracture. No worrisome bone lesions. MEDIAL COMPARTMENT: No significant osteophytes. Mild joint space narrowing. No chondrocalcinosis. LATERAL COMPARTMENT: No significant osteophytes. No joint space narrowing. No chondrocalcinosis. PATELLOFEMORAL COMPARTMENT: No significant osteophytes. No joint space narrowing. No chondrocalc inosis. IMPRESSION: Mild joint space narrowing in the medial compartment of the left knee. No other signifi cant finding in either knee. TECHNICAL DOCUMENTATION: JOB ID: [id number]- All Rights Reserved Reading location - IP/workstation name: [email or web address]
== END ==
LOC: CCC 10:00
DX: Z00.00 Encounter for general adult medical examination without abnormal findings (principal); M19.90 Unspecified osteoarthritis, unspecified site
CPT/HCPCS: 36415; 80053; 80061; 83036; 85025; 86038; 86200; 86430; 86900; 86901

== ENCOUNTER 2019-08-04 06:48 | Emergency (ER) | payer OTHER ==
--- NOTE | 2019-08-04 07:01 | ER Document Report ---
ED General - General Chief Complaint: Psych Problem Stated Complaint: BEHAVIORAL ISSUES Time Seen by Provider: 08/04/19 06:56 Primary Care Provider: [facility] [Primary Care Provider] - Follow up as needed Notes: 58-year-old man with bipolar 1 presents with binge drinking for the last week off all his psych meds for last month, decreased sleep, and thoughts of hurting himself and others. No plan. He is here on his own accord because he wants help. He has no plan to hurt others but his plan to hurt himself is to drink himself to . He is cooperative. He says his urine is malodorous otherwise he has no physical symptoms. Positive crack use. TRAVEL OUTSIDE OF THE [place] IN LAST 30 DAYS: No - Related Data Allergies/Adverse Reactions: chlorpheniramine [From Theraflu Cold & Sore Throat] Allergy (Unknown, Verified 02/17/19 08:16) pseudoephedrine HCl [From Theraflu Cold & Sore Throat] Allergy (Unknown, Verified 02/17/19 08:16) ketorolac tromethamine [From Toradol] Allergy (Verified 02/17/19 08:16) Hives Shellfish * [Shellfish] Allergy (Verified 02/17/19 08:16) swelling tramadol [Tramadol] Allergy (Verified 02/17/19 08:16) Hives tramadol HCl [From Ultram] Allergy (Verified 02/17/19 08:16) Hives Past Medical History - General Information source: Patient - Social History Smoking Status: Current Every Day Smoker Smoking Education Provided: Yes - The patient ED visit today was directly related to their abuse of cessation Family History: Arthritis, CAD, CVA, Hyperlipidemia, Hypertension - Past Medical History Cardiac Medical History: Reports: Hx Hypercholesterolemia, Hx Hypertension Denies: Hx Heart Attack Pulmonary Medical History: Reports: Hx Bronchitis Denies: Hx Asthma, Hx COPD, Hx Pneumonia, Hx Tuberculosis Neurological Medical History: Denies: Hx Cerebrovascular Accident, Hx Seizures Endocrine Medical History: Reports: Hx Diabetes Mellitus Type 2 - pre-diabetic Renal/ Medical History: Denies: Hx Peritoneal Dialysis GI Medical History: Reports: Hx Gastroesophageal Reflux Disease, Hx Hiatal Hernia, Hx Ulcer, Hx Colonoscopy, Hx Endoscopy Musculoskeletal Medical History: Reports Hx Arthritis, Reports Hx Musculoskeletal Trauma - ACL tear Psychiatric Medical History: Reports: Hx Bipolar Disorder, Hx Depression Past Surgical History: Reports: Hx Inguinal Hernia - LIH REPAIR, Hx Orthopedic Surgery - rotator cuff. Denies: Hx Pacemaker - Immunizations Immunizations up to date: Yes Hx Diphtheria, Pertussis, Tetanus Vaccination: Yes Hx Pneumococcal Vaccination: 02/24/00 Review of Systems - Review of Systems Notes: REVIEW OF SYSTEMS GEN: Denies fever, chills, weight loss ENT: Denies sore throat, nasal discharge, ear pain EYES: Denies blurry vision, eye pain, discharge CV: Denies chest pain, palpitations, edema RESP: Denies cough, shortness of breath, wheezing GI: Denies abdominal pain, nausea, vomiting, diarrhea MSK: Denies joint pain/swelling, edema, SKIN: Denies rash, skin lesions LYMPH: Denies swollen glands/lymph nodes NEURO: Denies headache, focal weakness or numbness, dizziness PSYCH: Poor sleep alcohol abuse bipolar PHYSICAL EXAMINATION General: No acute distress, well-nourished Head: Atraumatic, normocephalic ENT: Mouth normal, oropharynx moist, no exudates or tonsillar enlargement Eyes: Conjunctiva normal, pupils equal, lids normal Neck: No JVD, supple, no guarding CVS: Normal rate, regular rhythm, no murmurs Resp: No resp distress, equal and normal breath sounds bilaterally GI: Nondistended, soft, no tenderness to palpation, no rebound or guarding Ext: No deformities, no edema, normal range of motion in upper and lower ext Back: No CVA or midline TTP Skin: No rash, warm Lymphatic: No lymphadeopathy noted Neuro: Awake, alert. Face symmetric. GCS 15. He Heidrick: Linear thought process no hallucinations good judgment positive vague SI Course - Re-evaluation Re-evalutation: 08/04/19 07:00 Alcohol use crack use suicidal ideation homicidal ideation Moderate riskwe will consult psych Medically clear but will check for UTI I have discussed with the patient there likely diagnosis, aftercare plan, follow-up plans and my usual and customary return precautions. They verbalized understanding of this. Discharge - Discharge Clinical Impression: Alcohol abuse Condition: Good Disposition: PSYCH HOSP/UNIT [facility] [Primary [facility]] - Follow up as needed
[2019-08-04 07:21] LABS: ABSOLUTE EOSINOPHILS # (AUTO) 0.1 10^3/uL (0.0-0.6); ABSOLUTE LYMPHOCYTES (AUTO) 1.8 10^3/uL (0.5-4.7); ABSOLUTE MONOCYTES (AUTO) 0.5 10^3/uL (0.1-1.4); ABSOLUTE NEUT (AUTO) 1.1 10^3/uL (1.7-8.2); BASOPHILS % (AUTO) 0.8 % (0-2); EOSINOPHILS % (AUTO) 1.8 % (0-6); HEMATOCRIT 42.3 % (37.9-51.0); HEMOGLOBIN 14.3 g/dL (13.5-17.0); LYMPHOCYTES % (AUTO) 51.9 % (13-45); MEAN CORPUSCULAR HEMOGLOBIN 30.6 pg (27.0-33.4); MEAN CORPUSCULAR HGB CONC 33.8 g/dL (32.0-36.0); MEAN CORPUSCULAR VOLUME 91 fl (80-97); MONOCYTES % (AUTO) 13.9 % (3-13); PLATELET COUNT 228 10^3/uL (150-450); RED BLOOD COUNT 4.67 10^6/uL (4.35-5.55); RED CELL DISTRIBUTION WIDTH 16.8 % (11.5-14.0); SEGMENTED NEUTROPHILS % (AUTO) 31.6 % (42-78); TOTAL CELLS COUNTED % (AUTO) 100 %; WHITE BLOOD COUNT 3.5 10^3/uL (4.0-10.5)
[2019-08-04 07:37] LABS: APPEARANCE,URINE CLOUDY; BILIRUBIN,URINE NEGATIVE (NEGATIVE); COLOR,URINE YELLOW; GLUCOSE, URINE NEGATIVE (NEGATIVE); KETONES,URINE NEGATIVE (NEGATIVE); LEUKOCYTE ESTERASE,URINE LARGE (NEGATIVE); NITRITE,URINE NEGATIVE (NEGATIVE); PROTEIN,URINE NEGATIVE (NEGATIVE); URINE SPECIFIC GRAVITY 1.011; UROBILINOGEN,URINE NEGATIVE mg/dL (<2.0)
[2019-08-04 07:38] LABS: ALBUMIN 4.6 g/dL (3.5-5.0); ALCOHOL 215 mg/dL (NONE DETECTED); ALKALINE PHOSPHATASE 66 U/L (38-126); ANION GAP 13 (5-19); ASPARTATE AMINO TRANSFERASE 50 U/L (17-59); BILIRUBIN,TOTAL 0.3 mg/dL (0.2-1.3); BLOOD UREA NITROGEN 13 mg/dL (7-20); CALCIUM 9.4 mg/dL (8.4-10.2); CARBON DIOXIDE 22 mmol/L (22-30); CHLORIDE 106 mmol/L (98-107); GLUCOSE 108 mg/dL (75-110); TOTAL PROTEIN 8.1 g/dL (6.3-8.2)
[2019-08-04 07:40] LABS: ACETAMINOPHEN < 10 ug/mL (10-30); SALICYLATE < 1.0 mg/dL (2.0-20.0)
[2019-08-04 08:01] LABS: URINE AMPHETAMINES SCREEN NEGATIVE; URINE BARBITURATES SCREEN NEGATIVE; URINE MARIJUANA (THC) SCREEN NEGATIVE; URINE METHADONE SCREEN NEGATIVE; URINE PHENCYCLIDINE SCREEN NEGATIVE
--- NOTE | 2019-08-04 08:03 | EKG REPORT ---
SEVERITY:- OTHERWISE NORMAL ECG - SINUS RHYTHM BORDERLINE LEFT AXIS DEVIATION : Confirmed by: Karla Wheeler MD 04-Aug-2019 08:02:29
[2019-08-04 08:06] LABS: URINE BENZODIAZEPINES SCREEN UNCONFIRMED POSITIVE; URINE COCAINE SCREEN UNCONFIRMED POSITIVE
[2019-08-04] MEDS: CIPROFLOXACIN HCL 500 MG TABLET PO SCH ×2 (10:09→17:58)
[2019-08-04] MEDS ORDERED: HALOPERIDOL LACTATE INJ 5 MG/1 ML VIAL IM ONE (10:51)
[2019-08-04] MEDS ORDERED: LORAZEPAM INJ 2 MG/1 ML VIAL IM ONE (10:52)
[2019-08-04] MEDS ORDERED: DIPHENHYDRAMINE HCL 50 MG/ML VIAL IM ONE (10:52)
[2019-08-04] MEDS ORDERED: PANTOPRAZOLE SODIUM 40 MG TABLET.DR PO SCH (18:00)
[2019-08-04 23:14] VITALS: BP 140/78
== END 2019-08-04 23:00 | disposition home or self-care (01) ==
LOC: ER 06:48
DX: F10.129 Alcohol abuse with intoxication, unspecified (principal); F14.129 Cocaine abuse with intoxication, unspecified; N39.0 Urinary tract infection, site not specified; F31.9 Bipolar disorder, unspecified; R45.6 Violent behavior; R45.851 Suicidal ideations; R45.850 Homicidal ideations; F17.200 Nicotine dependence, unspecified, uncomplicated; I10 Essential (primary) hypertension; Z78.1 Physical restraint status; Z88.8 Allergy status to other drugs, medicaments and biological substances; Z91.013 Allergy to seafood; Z88.6 Allergy status to analgesic agent
CPT/HCPCS: 93005; 99291; 96372; 36415; 87086; 80307 ×4; 85025; 80053; 81001; 93010; J1200; J1630; J2060; J3490; 87088

== ENCOUNTER 2019-08-29 02:41 | Emergency (ER) | payer SELFPAY ==
[2019-08-29 05:53] LABS: ABSOLUTE EOSINOPHILS # (AUTO) 0.1 10^3/uL (0.0-0.6); ABSOLUTE LYMPHOCYTES (AUTO) 1.3 10^3/uL (0.5-4.7); ABSOLUTE MONOCYTES (AUTO) 0.6 10^3/uL (0.1-1.4); ABSOLUTE NEUT (AUTO) 2.5 10^3/uL (1.7-8.2); BASOPHILS % (AUTO) 0.6 % (0-2); EOSINOPHILS % (AUTO) 1.7 % (0-6); HEMATOCRIT 41.4 % (37.9-51.0); LYMPHOCYTES % (AUTO) 29.3 % (13-45); MEAN CORPUSCULAR HEMOGLOBIN 31.5 pg (27.0-33.4); MEAN CORPUSCULAR HGB CONC 33.8 g/dL (32.0-36.0); MEAN CORPUSCULAR VOLUME 93 fl (80-97); MONOCYTES % (AUTO) 12.5 % (3-13); PLATELET COUNT 218 10^3/uL (150-450); RED BLOOD COUNT 4.45 10^6/uL (4.35-5.55); RED CELL DISTRIBUTION WIDTH 16.4 % (11.5-14.0); SEGMENTED NEUTROPHILS % (AUTO) 55.9 % (42-78); TOTAL CELLS COUNTED % (AUTO) 100 %; WHITE BLOOD COUNT 4.5 10^3/uL (4.0-10.5)
[2019-08-29 06:16] LABS: ALBUMIN 4.2 g/dL (3.5-5.0); ALCOHOL 57 mg/dL (NONE DETECTED); ALKALINE PHOSPHATASE 70 U/L (38-126); ANION GAP 11 (5-19); ASPARTATE AMINO TRANSFERASE 49 U/L (17-59); BILIRUBIN,TOTAL 0.6 mg/dL (0.2-1.3); BLOOD UREA NITROGEN 13 mg/dL (7-20); CALCIUM 9.2 mg/dL (8.4-10.2); CARBON DIOXIDE 22 mmol/L (22-30); CHLORIDE 106 mmol/L (98-107); GLUCOSE 86 mg/dL (75-110); POTASSIUM 3.8 mmol/L (3.6-5.0); TOTAL PROTEIN 7.6 g/dL (6.3-8.2)
[2019-08-29 07:21] LABS: ACETAMINOPHEN < 10 ug/mL (10-30); SALICYLATE < 1.0 mg/dL (2.0-20.0)
[2019-08-29 07:45] LABS: APPEARANCE,URINE CLOUDY; BILIRUBIN,URINE NEGATIVE (NEGATIVE); COLOR,URINE YELLOW; GLUCOSE, URINE NEGATIVE (NEGATIVE); KETONES,URINE TRACE mg/dL (NEGATIVE); LEUKOCYTE ESTERASE,URINE LARGE (NEGATIVE); NITRITE,URINE NEGATIVE (NEGATIVE); PROTEIN,URINE NEGATIVE (NEGATIVE); URINE SPECIFIC GRAVITY 1.017
[2019-08-29 08:04] LABS: URINE AMPHETAMINES SCREEN NEGATIVE; URINE BARBITURATES SCREEN NEGATIVE; URINE BENZODIAZEPINES SCREEN NEGATIVE; URINE MARIJUANA (THC) SCREEN NEGATIVE; URINE METHADONE SCREEN NEGATIVE; URINE PHENCYCLIDINE SCREEN NEGATIVE
[2019-08-29 08:14] LABS: URINE COCAINE SCREEN UNCONFIRMED POSITIVE
--- NOTE | 2019-08-29 08:25 | RADIOLOGY REPORT (SQ) ---
EXAM DESCRIPTION: ACUTE ABDOMEN SERIES IMAGES COMPLETED DATE/TIME: 08/29/2019 7:26 am REASON FOR STUDY: abd pain COMPARISON: 02/17/2019 NUMBER OF VIEWS: Three views. TECHNIQUE: Frontal chest, supine abdomen and upright/decubitus abdomen radiographic images acquired. LIMITATIONS: None. FINDINGS: CHEST: No focal airspace disease, pleural effusion or pneumothorax. Normal cardiomediasti nal silhouette. FREE AIR: None. No abnormal gas collections. BOWEL GAS PATTERN: Nonobstructive pattern. No dilated loops or air fluid levels. CALCIFICATIONS: Ovoid calcific densities overlie right lower quadrant, etiology uncertain no suspicio us radiopaque stones overlie kidneys or expected course of ureters. HARDWARE: None in the abdomen. SOFT TISSUES: No gross mass or suggestion of organomegaly. BONES: No acute fracture. No worrisome bone lesions. OTHER: No other significant finding. IMPRESSION: No evidence of acute intrathoracic process. Ovoid radiodensities overlie right lower quadrant, etiology uncertain but likely enteric contents (ra diopaque pills). No other evidence of intra-abdominal/pelvic process. TECHNICAL DOCUMENTATION: JOB ID: [id number] 2010 [employer]- All Rights Reserved Reading location - IP/workstation name: [email or web address]
--- NOTE | 2019-08-29 10:41 | EKG REPORT ---
SEVERITY:- NORMAL ECG - SINUS RHYTHM : Confirmed by: Spencer Ballesteros MD 29-Aug-2019 10:40:45
[2019-08-29] MEDS: LORAZEPAM 1 MG TABLET PO SCH ×2 (11:10→13:57)
[2019-08-29] MEDS ORDERED: CLONIDINE HCL 0.1 MG TABLET PO ONE (13:19)
--- NOTE | 2019-08-29 13:31 | PSYCHOLOGICAL NOTE ---
Psych Note - Psych Note Date seen by psych provider: 08/29/19 Time seen by psych provider: 11:20 Psych Note: Reason for Consult: SI/HI Patient presented to [facility] ED under the influence of alcohol and probable positive for cocaine. He disclosed passive thoughts of self harm and harm to his . He states he was fighting with his which was the trigger for his homicidal ideation. He denies any plan or true intent. He reports he suffers from chronic suicidal and homicidal ideation when under the influence. He has no history of self harm or harming others; "they are just passing thoughts I get when I am drinking...I have never done anything...no plan...." Chart review revealed patient was seen in the ED on 08/04/2019 and 11/23/2018 for SA/SI/HI, UDS positive for alcohol and cocaine then and he went to [facility] voluntarily on 11/23/2018. He was also seen in the ED in 2014 for similar etiology. Collateral: [place] ([phone]); left message Clinical presentation: Substance abuse; alcohol and cocaine passive SI/HI (no plan, means or intent) when under the influence Impression/Plan: Patient is cleared from acute psychiatric services. Dr. Suresh was consulted on the care and management of this patient; attending physician is in agreement with recommendations and disposition.
[2019-08-29] MEDS ORDERED: NORMAL SALINE 1000 ML 1,000 ML with POTASSIUM CHLORIDE 20 MEQ, MAGNESIUM SULFATE 8 MEQ,... IV ONE ×5 (14:00)
[2019-08-29 17:24] VITALS: BP 145/87
[2019-08-29] MEDS ORDERED: CIPROFLOXACIN HCL 500 MG TABLET PO ONE (17:27)
--- NOTE | 2019-08-29 17:34 | ER Document Report ---
Entered by MALGORZATA STONE SCRIBE 08/29/19 0657 Acting as scribe for:ETHAN BONILLA MD ED General <CROW ARENAS - Last Filed: 08/29/19 13:44> - General Information source: Patient TRAVEL OUTSIDE OF THE [place] IN LAST 30 DAYS: No <ETHAN BONILLA - Last Filed: 08/29/19 17:34> - General Chief Complaint: Suicidal Ideation Stated Complaint: ETOH DETOX Time Seen by Provider: 08/29/19 06:13 Primary Care Provider: [facility] [Outside] - Follow up as needed Notes: This 58 year old male patient presents to the emergency department today with suicidal ideation by alcohol abuse. Patient states he drinks beer and liquor every day. Patient reports nausea and abdominal pain the past x5 days and has not been able to eat. Denies vomiting and states his bowel movement yesterday was normal. Patient states he wants to "drink himself to " and beat up his because she is "mean to him." Patient states he wants to detox and called a facility yesterday in [place], [place] that is a [place] based program that is free. Patient also reports smoking cocaine early this morning x2-3 hours prior to arrival. (ETHAN BONILLA) - Related Data Allergies/Adverse Reactions: chlorpheniramine [From Theraflu Cold & Sore Throat] Allergy (Unknown, Verified 02/17/19 08:16) pseudoephedrine HCl [From Theraflu Cold & Sore Throat] Allergy (Unknown, Verified 02/17/19 08:16) ketorolac tromethamine [From Toradol] Allergy (Verified 02/17/19 08:16) Hives Shellfish * [Shellfish] Allergy (Verified 02/17/19 08:16) swelling tramadol [Tramadol] Allergy (Verified 02/17/19 08:16) Hives tramadol HCl [From Ultram] Allergy (Verified 02/17/19 08:16) Hives Past Medical History - General Information source: Patient - Social History Smoking Status: Current Every Day Smoker Cigarette use (# per day): Yes Chew tobacco use (# tins/day): No Frequency of alcohol use: Heavy Drug Abuse: Cocaine Lives with: Family Family History: Arthritis, CAD, CVA, Hyperlipidemia, Hypertension Patient has suicidal ideation: Yes Patient has homicidal ideation: Yes - Past Medical History Cardiac Medical History: Reports: Hx Hypercholesterolemia, Hx Hypertension - on meds Pulmonary Medical History: Reports: Hx Bronchitis Endocrine Medical History: Reports: Hx Diabetes Mellitus Type 2 - pre-diabetic GI Medical History: Reports: Hx Gastroesophageal Reflux Disease, Hx Hiatal Hernia, Hx Ulcer, Hx Colonoscopy, Hx Endoscopy Musculoskeletal Medical History: Reports Hx Arthritis, Reports Hx Musculoskelet al Trauma - ACL tear Psychiatric Medical History: Reports: Hx Bipolar Disorder, Hx Depression Past Surgical History: Reports: Hx Inguinal Hernia - LIH REPAIR, Hx Orthopedic Surgery - rotator cuff - Immunizations Immunizations up to date: Yes Hx Diphtheria, Pertussis, Tetanus Vaccination: Yes Hx Pneumococcal Vaccination: 02/24/00 <ETHAN BONILLA - Last Filed: 08/29/19 17:34> Review of Systems - Review of Systems Constitutional: No symptoms reported EENT: No symptoms reported Cardiovascular: No symptoms reported Respiratory: No symptoms reported Gastrointestinal: See HPI, Abdominal pain, Nausea, Poor appetite, Other - Normal bowel movement. denies: Vomiting Genitourinary: No symptoms reported Male Genitourinary: No symptoms reported Musculoskeletal: No symptoms reported Skin: No symptoms reported Hematologic/Lymphatic: No symptoms reported Neurological/Psychological: See HPI, Homicidal ideation, Suicidal ideation - ETOH -: Yes All other systems reviewed and negative <ETHAN BONILLA - Last Filed: 08/29/19 17:34> Physical Exam - General General appearance: Appears well, Alert - HEENT Head: Normocephalic, Atraumatic Eyes: Normal Pupils: PERRL - Respiratory Respiratory status: No respiratory distress Chest status: Nontender Breath sounds: Normal Chest palpation: Normal - Cardiovascular Rhythm: Regular Heart sounds: Normal auscultation, S1 appreciated, S2 appreciated Murmur: No - Abdominal Inspection: Normal Distension: Distended, Fluid wave Bowel sounds: Normal Tenderness: Nontender - Extremities General upper extremity: Normal inspection. No: Edema General lower extremity: Normal inspection. No: Edema - Neurological Neuro grossly intact: Yes Cognition: Normal Orientation: AAOx4 Speech: Normal - Psychological Associated symptoms: Depressed - Skin Skin Temperature: Warm Skin Moisture: Dry Skin Color: Normal <ETHAN BONILLA - Last Filed: 08/29/19 17:34> - Vital signs Vitals: Temp Pulse Resp BP Pulse Ox 98.8 F 107 H 18 146/92 H 97 08/29/19 02:47 08/29/19 02:47 08/29/19 02:47 08/29/19 02:47 08/29/19 02:47 - Psychological Notes: Suicidal ideation by alcohol abuse. Homicidal ideation to harm . (ETHAN BONILLA) Course - Laboratory Result Diagrams: 08/29/19 05:34 08/29/19 05:34 <CROW ARENAS - Last Filed: 08/29/19 13:44> - Laboratory Result Diagrams: 08/29/19 05:34 08/29/19 05:34 - Diagnostic Test Radiology reviewed: Image reviewed, Reports reviewed <ETHAN BONILLA - Last Filed: 08/29/19 17:34> - Re-evaluation Re-evalutation: 08/29/19 17:22 Patient resting comfortably in exam room not showing any signs of distress at this time. 08/29/19 17:31 Discussed with patient that the mental health team has determined that patient does not meet criteria for involuntary commitment without any definite suicidal homicidal plans. Patient has an alcohol problem and has been drinking alcohol to excess in recent days today his alcohol levels 57. Patient is discharged home today for follow-up as an outpatient and he has been given resources by the mental health team to assist him in finding a detox program. (ETHAN BONILLA) - Vital Signs Vital signs: Temp Pulse Resp BP Pulse Ox 97.2 F 107 H 27 H 145/87 H 96 08/29/19 13:19 08/29/19 02:47 08/29/19 17:01 08/29/19 17:00 08/29/19 17:01 08/29/19 17:22 Vital signs stable at this time (ETHAN BONILLA) - Laboratory Laboratory results interpreted by me: 08/29/19 08/29/19 08/29/19 05:34 05:34 07:25 RDW 16.4 H Urine Ketones TRACE H Urine Blood SMALL H Urine Urobilinogen 2.0 H Ur Leukocyte Esterase LARGE H Salicylates < 1.0 L Acetaminophen < 10 L - Diagnostic Test Radiology results interpreted by me: 08/29/19 17:22 Acute abdominal series shows normal chest no infiltrates abdomen nonspecific bowel gas pattern thought to be tablets present noted on exam. No obstruction no free air. (ETHAN BONILLA) Discharge <ARENASCROW - Last Filed: 08/29/19 13:44> <ETHAN BONILLA - Last Filed: 08/29/19 17:34> - Discharge Clinical Impression: Substance abuse, Passive suicidal ideations, Urinary tract infection Condition: Stable Disposition: HOME, SELF-CARE Instructions: Urinary Tract Infection ([facility]) Additional Instructions: You have been evaluated by both medical and behavioral health teams and have been deemed appropriate for discharge. You are encouraged to follow though with substance abuse treatment and have been provided a resource list of detox facilities and mobile crisis contact information. CHRONIC ALCOHOLISM and ALCOHOL ABUSE: Your evaluation reveals evidence of chronic alcoholism, an addiction to alcohol. The tendency to alcoholism may be inherited. Chronic use of alcohol weakens muscles, causes fatty deposits in the liver, damages the stomach, makes you more prone to infections, and can cause defects in unborn children. In the long run, brain atrophy and cirrhosis of the liver result. You are also at greater risk for certain types of cancer, such as cancer of the mouth, throat, stomach, and liver. Counselling services are available to help you. In-hospital treatment programs often help. Support groups such as Alcoholics Anonymous can be very useful in beating this addiction. Your physician can make a referral for you. As alcoholics often are prone to other addictions, you should discuss your use of any other medications with the doctor. ALCOHOL WITHDRAWAL: Your symptoms are caused by alcohol withdrawal. After a period of frequent drinking, the brain and body are changed by the alcohol. When you quit or reduce your drinking, the nervous system becomes unstable. Withdrawal symptoms can start a few hours after your last drink, but sometimes don't begin until a couple of days later. Symptoms can include shakiness, sweating, insomnia, nausea, vomiting, fearfulness, hallucinations, and seizures. In addition to the acute effects of alcohol withdrawal, we often have to deal with the medical effects of alcoholism. These problems often include dehydration, stomach irritation, intestinal bleeding, low blood sugar, liver disease, and pancreas inflammation. Treatment for alcohol withdrawal includes mild sedatives, vitamins, and fluids. You need to be with someone who can help if symptoms become severe. Many patients can withdraw at home. Admission to the hospital or a detox facility may be necessary if withdrawal symptoms are severe and uncontrollable. Abstaining from alcohol is the only effective long-term treatment. If you start drinking again, you will not be able to control yourself after the first drink. Treatment programs are available. In addition, many alcoholics benefit from Alcoholics Anonymous or other support groups available through your counselor or taoism radiation physicist. AL-ANON and ALA-TEEN are support groups for friends and family members of an alcoholic. Go to the emergency room if you develop persistent vomiting, severe abdominal pain, fever, shortness of breath, hallucinations, uncontrollable tremors, or seizures. COCAINE ABUSE: Cocaine causes many dangerous medical problems. Problems can occur even with "usual" amounts. Cocaine affects judgement, creating a sense of invulnerability. Cocaine users often make bad decisions that seem "great" at the time. Most cocaine users eventually will be hurt by bad job performance, damaged personal relations, crime, and unsafe sexual practices. Toxic effects of cocaine can include seizures, hallucinations, delusions, high blood pressure, heart damage, or sudden . There's always the risk of a "bad batch." But heart attacks, brain hemorrhages, or cardiac arrest can occur unpredictably even with "normal" use. Injection of cocaine is risky for abscesses, endocarditis (heart infection), pneumonia, and AIDS. Withdrawal from cocaine often causes anxiety and drug cravings. Some users become paranoid and psychotic. Many treatment programs are available, but you must make the decision to quit. Medication can be prescribed to control the symptoms of cocaine toxicity (beta blockers or benzodiazepines). Withdrawal symptoms may require tranquilizers. FOLLOW-UP CARE: If you have been referred to a physician for follow-up care, call the physicians office for an appointment as you were instructed or within the next two days. If you experience worsening or a significant change in your symptoms, notify the physician immediately or return to the Emergency Department at any time for re-evaluation. Prescriptions: Ciprofloxacin HCl [Cipro 500 mg Tablet] 500 mg PO BID #20 tablet Referrals: [facility] [Outside] - Follow up as needed I personally performed the services described in the documentation, reviewed and edited the documentation which was dictated to the scribe in my presence, and it accurately records my words and actions.
[2019-08-29] MEDS ORDERED: NORMAL SALINE 1000 ML 1,000 ML with POTASSIUM CHLORIDE 20 MEQ, MAGNESIUM SULFATE 8 MEQ,... IV SCH ×5 (18:00)
== END 2019-08-29 17:49 | disposition home or self-care (01) ==
LOC: ER 02:41
DX: N39.0 Urinary tract infection, site not specified (principal); R45.851 Suicidal ideations; F19.10 Other psychoactive substance abuse, uncomplicated; F10.10 Alcohol abuse, uncomplicated; R45.850 Homicidal ideations; F17.210 Nicotine dependence, cigarettes, uncomplicated; E78.00 Pure hypercholesterolemia, unspecified; I10 Essential (primary) hypertension; R73.03 Prediabetes
CPT/HCPCS: 93005; 99285; 96365; 96366; 36415; 87086; 80307 ×4; 83690; 84443; 85025; 80053; 81001; 84484; 74022; 93010; J3475; J3480; J3411; J7030; J3490

== ENCOUNTER 2019-09-03 08:58 | Emergency (ER) | payer SELFPAY ==
--- NOTE | 2019-09-03 09:17 | RADIOLOGY REPORT (SQ) ---
EXAM DESCRIPTION: CHEST SINGLE VIEW IMAGES COMPLETED DATE/TIME: 09/03/2019 9:08 am REASON FOR STUDY: chest pain COMPARISON: 02/18/2016 EXAM PARAMETERS: NUMBER OF VIEWS: One view. TECHNIQUE: Single frontal radiographic view of the chest acquired. RADIATION DOSE: NA LIMITATIONS: None. FINDINGS: LUNGS AND PLEURA: No opacities, masses or pneumothorax. No pleural effusion. MEDIASTINUM AND HILAR STRUCTURES: No masses. Contour normal. HEART AND VASCULAR STRUCTURES: Heart normal in size. Normal vasculature. BONES: No acute findings. HARDWARE: None in the chest. OTHER: No other significant finding. IMPRESSION: NO ACUTE RADIOGRAPHIC FINDING IN THE CHEST. TECHNICAL DOCUMENTATION: JOB ID: [id number] 2010 [employer]- All Rights Reserved Reading location - IP/workstation name: [email or web address]
[2019-09-03 09:22] LABS: ABSOLUTE EOSINOPHILS # (AUTO) 0.1 10^3/uL (0.0-0.6); ABSOLUTE LYMPHOCYTES (AUTO) 1.5 10^3/uL (0.5-4.7); ABSOLUTE MONOCYTES (AUTO) 0.6 10^3/uL (0.1-1.4); ABSOLUTE NEUT (AUTO) 2.4 10^3/uL (1.7-8.2); EOSINOPHILS % (AUTO) 1.4 % (0-6); HEMATOCRIT 42.3 % (37.9-51.0); HEMOGLOBIN 14.4 g/dL (13.5-17.0); MEAN CORPUSCULAR HEMOGLOBIN 31.3 pg (27.0-33.4); MEAN CORPUSCULAR HGB CONC 34.1 g/dL (32.0-36.0); MEAN CORPUSCULAR VOLUME 92 fl (80-97); MONOCYTES % (AUTO) 13.6 % (3-13); PLATELET COUNT 245 10^3/uL (150-450); RED BLOOD COUNT 4.61 10^6/uL (4.35-5.55); TOTAL CELLS COUNTED % (AUTO) 100 %; WHITE BLOOD COUNT 4.7 10^3/uL (4.0-10.5)
[2019-09-03 09:42] LABS: ALBUMIN 4.5 g/dL (3.5-5.0); ALKALINE PHOSPHATASE 53 U/L (38-126); ANION GAP 10 (5-19); ASPARTATE AMINO TRANSFERASE 107 U/L (17-59); BILIRUBIN,DIRECT 0.1 mg/dL (0.0-0.4); BILIRUBIN,TOTAL 0.8 mg/dL (0.2-1.3); BLOOD UREA NITROGEN 14 mg/dL (7-20); CALCIUM 10.1 mg/dL (8.4-10.2); CARBON DIOXIDE 24 mmol/L (22-30); CHLORIDE 101 mmol/L (98-107); CREATINE KINASE 965 U/L (55-170); GLUCOSE 107 mg/dL (75-110); POTASSIUM 4.7 mmol/L (3.6-5.0); TOTAL PROTEIN 8.1 g/dL (6.3-8.2)
[2019-09-03 09:51] LABS: CREATINE KINASE MB 3.89 ng/mL (<4.55)
--- NOTE | 2019-09-03 09:58 | EKG REPORT ---
SEVERITY:- BORDERLINE ECG - SINUS TACHYCARDIA BORDERLINE LEFT AXIS DEVIATION NONSPECIFIC ST-T CHANGES- INFERIOR LEADS : Confirmed by: Spencer Ballesteros MD 03-Sep-2019 09:57:15
[2019-09-03 10:03] LABS: TROPONIN I < 0.012 ng/mL
[2019-09-03 10:10] LABS: APPEARANCE,URINE SLIGHTLY-CLOUDY; BILIRUBIN,URINE NEGATIVE (NEGATIVE); COLOR,URINE YELLOW; GLUCOSE, URINE NEGATIVE (NEGATIVE); KETONES,URINE NEGATIVE (NEGATIVE); LEUKOCYTE ESTERASE,URINE LARGE (NEGATIVE); NITRITE,URINE NEGATIVE (NEGATIVE); PROTEIN,URINE NEGATIVE (NEGATIVE); URINE SPECIFIC GRAVITY 1.016; UROBILINOGEN,URINE NEGATIVE mg/dL (<2.0)
[2019-09-03 10:22] LABS: URINE AMPHETAMINES SCREEN NEGATIVE; URINE BARBITURATES SCREEN NEGATIVE; URINE BENZODIAZEPINES SCREEN NEGATIVE; URINE MARIJUANA (THC) SCREEN NEGATIVE; URINE METHADONE SCREEN NEGATIVE; URINE PHENCYCLIDINE SCREEN NEGATIVE
[2019-09-03 10:23] LABS: URINE COCAINE SCREEN UNCONFIRMED POSITIVE
[2019-09-03] MEDS ORDERED: CIPROFLOXACIN HCL 500 MG TABLET PO ONE (15:00)
--- NOTE | 2019-09-03 15:06 | ER Document Report ---
Entered by MALGORZATA STONE SCRIBE 09/03/19 1034 Acting as scribe for:ETHAN BONILLA MD ED General - General Chief Complaint: Chest Pain Stated Complaint: CHEST PAIN Time Seen by Provider: 09/03/19 09:47 Information source: Patient Notes: This 58 year old male patient presents to the emergency department today with complaints of chest pain. Patient states he was drinking large amounts of alc ohol and used cocaine this morning. Patient states after walking around he noticed some chest pain. Patient states he visited the ED x5 days ago and stayed at [facility] for x3 days after being discharged. Patient states he is living with friends and they supply him with alcohol and cocaine. Denies any headache, vomiting, fever, or chills. Patient states he currently does not have chest pain. TRAVEL OUTSIDE OF THE [place].S[place] IN LAST 30 DAYS: No - Related Data Allergies/Adverse Reactions: chlorpheniramine [From Theraflu Cold & Sore Throat] Allergy (Unknown, Verified 02/17/19 08:16) pseudoephedrine HCl [From Theraflu Cold & Sore Throat] Allergy (Unknown, Verified 02/17/19 08:16) ketorolac tromethamine [From Toradol] Allergy (Verified 02/17/19 08:16) Hives Shellfish * [Shellfish] Allergy (Verified 02/17/19 08:16) swelling tramadol [Tramadol] Allergy (Verified 02/17/19 08:16) Hives tramadol HCl [From Ultram] Allergy (Verified 02/17/19 08:16) Hives Past Medical History - General Information source: Patient - Social History Smoking Status: Current Every Day Smoker Cigarette use (# per day): Yes Frequency of alcohol use: Heavy Drug Abuse: Cocaine Family History: Arthritis, CAD, CVA, Hyperlipidemia, Hypertension - Past Medical History Cardiac Medical History: Reports: Hx Hypercholesterolemia, Hx Hypertension - on meds Pulmonary Medical History: Reports: Hx Bronchitis Endocrine Medical History: Reports: Hx Diabetes Mellitus Type 2 - pre-diabetic GI Medical History: Reports: Hx Gastroesophageal Reflux Disease, Hx Hiatal Hernia, Hx Ulcer, Hx Colonoscopy, Hx Endoscopy Musculoskeletal Medical History: Reports Hx Arthritis, Reports Hx Musculoskeletal Trauma - ACL tear Psychiatric Medical History: Reports: Hx Bipolar Disorder, Hx Depression Past Surgical History: Reports: Hx Inguinal Hernia - LIH REPAIR, Hx Orthopedic Surgery - rotator cuff - Immunizations Immunizations up to date: Yes Hx Diphtheria, Pertussis, Tetanus Vaccination: Yes Hx Pneumococcal Vaccination: 02/24/00 Review of Systems - Review of Systems Constitutional: See HPI. denies: Chills, Fever EENT: No symptoms reported Cardiovascular: See HPI, Chest pain Respiratory: No symptoms reported Gastrointestinal: See HPI. denies: Vomiting Genitourinary: No symptoms reported Male Genitourinary: No symptoms reported Musculoskeletal: No symptoms reported Skin: No symptoms reported Hematologic/Lymphatic: No symptoms reported Neurological/Psychological: See HPI. denies: Headaches -: Yes All other systems reviewed and negative Physical Exam - Vital signs Vitals: Temp Resp Pulse Ox 98.2 F 20 93 09/03/19 09:01 09/03/19 09:01 09/03/19 09:01 - General General appearance: Alert In distress: Mild - HEENT Head: Normocephalic, Atraumatic Eyes: Normal Pupils: PERRL - Respiratory Respiratory status: No respiratory distress Chest status: Nontender Breath sounds: Normal Chest palpation: Normal - Cardiovascular Rhythm: Regular Heart sounds: Normal auscultation Murmur: No - Abdominal Inspection: Normal Distension: Distended Bowel sounds: Normal Tenderness: Nontender - Extremities General upper extremity: Normal inspection. No: Edema General lower extremity: Normal inspection. No: Edema - Neurological Neuro grossly intact: Yes Cognition: Normal Orientation: AAOx4 Speech: Normal - Psychological Associated symptoms: Normal affect, Depressed - Skin Skin Temperature: Warm Skin Moisture: Dry Skin Color: Normal Course - Re-evaluation Re-evalutation: 09/03/19 14:54 Patient not showing any signs of distress at this time. Patient based on EKG laboratories patient over time does not show that he has had any acute cardiovascular event, troponins negative x2 EKG without ST changes otherwise laboratories and vital signs have been stable. 09/03/19 14:56 Discussed case with that the mental health team who is already evaluated patient. Patient is being medically cleared from the emergency department from a medical standpoint as well as a mental health standpoint. Patient is not suicidal at this time and if patient is interested in a detox program patient is given resources from the mental health department to allow him to seek out detox facilities long-term recovery programs as well as voluntary inpatient detox substance abuse programs. 09/03/19 15:01 Patient also has noted to have a urinary tract infection based on urine analysis with large amount of leukocyte esterase present. I requested of patient that he was recently treated for urinary tract infection and he admits that he never got the prescription filled. Therefore patient will be issued a new prescription for Cipro to take twice a day for 10 days. Urine culture will be ordered. - Vital Signs Vital signs: Temp Pulse Resp BP Pulse Ox 98.2 F 19 121/86 H 91 L 09/03/19 09:01 09/03/19 14:15 09/03/19 14:15 09/03/19 14:15 09/03/19 14:55 Vital signs stable - Laboratory Result Diagrams: 09/03/19 09:12 09/03/19 09:12 Laboratory results interpreted by me: 09/03/19 09/03/19 09/03/19 09:12 09:12 09:43 RDW 16.0 H [place] % (Auto) 13.6 H Sodium 134.6 L Creatinine 1.37 H Est GFR (MDRD) Non-Af 54 L AST 107 H ALT 102 H Creatine Kinase 965 H Urine Blood MODERATE H Ur Leukocyte Esterase LARGE H - Diagnostic Test Radiology reviewed: Image reviewed, Reports reviewed Radiology results interpreted by me: 09/03/19 14:55 Chest x-ray shows no acute process - EKG Interpretation by Me Additional EKG results interpreted by me: 09/03/19 14:55 Twelve-lead EKG shows a sinus tachycardia rate of [address]-T wave changes borderline left axis deviation. Discharge - Discharge Clinical Impression: Substance abuse, Chest pain, Urinary tract infection, Passive suicidal ideations, Cocaine abuse Condition: Stable Disposition: HOME, SELF-CARE Instructions: Urinary Tract Infection ([facility]) Additional Instructions: Cocaine Abuse Cocaine causes many dangerous medical problems. Problems can occur even with "usual" amounts. Cocaine affects judgement, creating a sense of invulnerability. Cocaine users often make bad decisions that seem "great" at the time. Most cocaine users eventually will be hurt by bad job performance, damaged personal relations, crime, and unsafe sexual practices. Toxic effects of cocaine can include seizures, hallucinations, delusions, high blood pressure, heart damage, or sudden . There's always the risk of a "bad batch." But heart attacks, brain hemorrhages, or cardiac arrest can occur unpredictably even with "normal" use. Injection of cocaine is risky for abscesses, endocarditis (heart infection), pneumonia, and AIDS. Withdrawal from cocaine often causes anxiety and drug cravings. Some users become paranoid and psychotic. Many treatment programs are available, but you must make the decision to quit. Medication can be prescribed to control the symptoms of cocaine toxicity (beta blockers or benzodiazepines). Withdrawal symptoms may require tranquilizers. You develop chest pain today at the report that you use cocaine. There is no evidence today that you have had a heart attack based on your drug abuse of cocaine. We recommend you discontinue your use of cocaine and get some help with behavioral or detox programs. Prescriptions: Ciprofloxacin HCl [Cipro 500 mg Tablet] 500 mg PO BID #20 tablet I personally performed the services described in the documentation, reviewed and edited the documentation which was dictated to the scribe in my presence, and it accurately records my words and actions.
[2019-09-03 15:09] VITALS: BP 125/97
--- NOTE | 2019-09-03 15:18 | PSYCHOLOGICAL NOTE ---
Psych Note - Psych Note Date seen by psych provider: 09/03/19 Time seen by psych provider: 12:25 Psych Note: Reason for Consult: Substance abuse Impression/Plan: Patient is cleared from acute psychiatric services. Dr. Suresh was consulted on the care and management of this patient; attending physician is in agreement with recommendations and disposition.
== END 2019-09-03 15:18 | disposition home or self-care (01) ==
LOC: ER 08:58
DX: R07.9 Chest pain, unspecified (principal); N39.0 Urinary tract infection, site not specified; F14.10 Cocaine abuse, uncomplicated; R00.0 Tachycardia, unspecified; R45.851 Suicidal ideations; F17.210 Nicotine dependence, cigarettes, uncomplicated; I10 Essential (primary) hypertension; Z88.8 Allergy status to other drugs, medicaments and biological substances; Z91.013 Allergy to seafood; Z88.6 Allergy status to analgesic agent
CPT/HCPCS: 36415; 71045; 80053; 80307; 81001; 82550; 82553; 84484; 85025; 87086; 93005; 93010; 99285